=== PATIENT | female | born 1985 | race Caucasian/White ===

== ENCOUNTER 2016-12-19 02:43 | Inpatient (IN) | payer OTHER ==
--- NOTE | 2016-12-19 03:02 | ED Physician Documentation ---
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
--- NOTE | 2016-12-19 03:03 | ED Physician Documentation ---
PD HPI ABD PAIN - Stated complaint Stated Complaint: VOMITING/SOA - Chief complaint Chief Complaint: Abd Pain - History obtained from History obtained from: Patient - History of Present Illness Timing - onset: Enter time (00:30 AM), Today Timing - duration: Hours Timing - details: Abrupt onset, Waxing and waning Pain level max: 10 Pain level now: 8 Quality: Pain Location: RUQ, Epigastric Radiation: Other (across upper abdomen and towards right flank) Improved by: Other (no ameliorating factors) Worsened by: Position, Palpation Associated symptoms: Nausea, Vomiting. No: Fever, Diarrhea, Constipation Similar symptoms before: Has not had sx before Recently seen: Not recently seen Review of Systems Constitutional: reports: Reviewed and negative Eyes: reports: Reviewed and negative Ears: reports: Reviewed and negative Nose: reports: Reviewed and negative Throat: reports: Reviewed and negative Cardiac: reports: Reviewed and negative Respiratory: reports: Reviewed and negative GI: reports: Abdominal Pain, Nausea, Vomiting. 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 Other Past Medical History: PCOS - Past Surgical History Past Surgical History: Yes Ortho: Other - Present Medications Home Medications: Ambulatory Orders Medication Instructions Recorded Confirmed Metformin HCl 1,000 mg PO BID 12/19/16 12/19/16 - Allergies Allergies/Adverse Reactions: Allergies Allergy/AdvReac Type Severity Reaction Status Date / Time codeine Allergy Hallucinati Verified 12/19/16 02:51 ons - Social History Does the pt smoke?: No Smoking Status: Never smoker Does the pt drink ETOH?: No - Immunizations Immunizations are current?: Yes PD ED PE NORMAL - Vitals Vital signs reviewed: Yes - General General: Alert and oriented X 3, Well developed/nourished, Other (obvious painful distress that appears to wax and wane in intensity during HPI) - Neck Neck: Supple, no meningeal sign - Cardiac Cardiac: RRR, No murmur - Respiratory Respiratory: No respiratory distress, Clear bilaterally - Abdomen Abdomen: Soft, Non distended - Back Back: No CVA TTP - Derm Derm: Normal color, Warm and dry - Extremities Extremities: No edema - Neuro Neuro: Alert and oriented X 3 PD ED PE EXPANDED - Abdomen Abdomen: Tender to palpation, RUQ, Epigastric. No: Rebound Results - Vitals Vitals: Vital Signs - 24 hr 12/19/16 02:48 Temperature 36.7 C Heart Rate 76 Respiratory 20 Rate Blood Pressure 136/76 H O2 Saturation 100 Oxygen O2 Source Room air - Labs Labs: Laboratory Tests 12/19/16 12/19/16 12/19/16 03:33 03:33 03:33 WBC 15.0 H RBC 4.61 Hgb 12.8 Hct 38.0 MCV 82.4 MCH 27.7 MCHC 33.6 RDW 14.1 Plt Count 256 MPV 8.3 Neut # 12.4 H Lymph # 1.6 [place] # 0.9 Eos # 0.0 Baso # 0.1 Absolute Nucleated RBC 0.00 Nucleated RBCs 0.0 Sodium 138 Potassium 3.7 Chloride 104 Carbon Dioxide 24 Anion Gap 10.0 BUN 12 Creatinine 0.6 Estimated GFR (MDRD) 117 Glucose 133 H Calcium 8.3 L Total Bilirubin 1.0 AST 411 H ALT 283 H Alkaline Phosphatase 89 Total Protein 6.5 L Albumin 3.7 Globulin 2.8 Albumin/Globulin Ratio 1.3 Lipase 3390 H HCG, Quant < 0.60 Urine Color Urine Clarity Urine pH Ur Specific [place] Urine Protein Urine Glucose (UA) Urine Ketones Urine Occult Blood Urine Nitrite Urine Bilirubin Urine Urobilinogen Ur Leukocyte Esterase Ur Microscopic Review Urine Culture Comments 12/19/16 06:05 WBC RBC Hgb Hct MCV MCH MCHC RDW Plt Count MPV Neut # Lymph # [place] # Eos # Baso # Absolute Nucleated RBC Nucleated RBCs Sodium Potassium Chloride Carbon Dioxide Anion Gap BUN Creatinine Estimated GFR (MDRD) Glucose Calcium Total Bilirubin AST ALT Alkaline Phosphatase Total Protein Albumin Globulin Albumin/Globulin Ratio Lipase HCG, Quant Urine Color YELLOW Urine Clarity CLEAR Urine pH 6.5 Ur Specific [place] 1.020 Urine Protein NEGATIVE Urine Glucose (UA) NEGATIVE Urine Ketones NEGATIVE Urine Occult Blood NEGATIVE Urine Nitrite NEGATIVE Urine Bilirubin NEGATIVE Urine Urobilinogen 1 (NORMAL) Ur Leukocyte Esterase NEGATIVE Ur Microscopic Review NOT INDICATED Urine Culture Comments NOT INDICATED - Rads (name of study) RUQ US Radiology: Prelim report reviewed, See rad report PD MEDICAL DECISION MAKING - ED course Complexity details: reviewed results, re-evaluated patient, considered differential, d/w patient, d/w family ED course: D/W Dr. Sigala, who came to ED, evaluated and admitted patient to his service. Departure - Departure Disposition: [facility] DC/[facility] Clinical Impression: Gallstone pancreatitis Condition: Good Discharge Date/Time: 12/19/16 07:34
[2016-12-19] MEDS ORDERED: HYDROmorphone 1 MG/ML SYRINGE ONE (03:11)
[2016-12-19] MEDS ORDERED: ONDANSETRON 4 MG/2 ML VIAL ONE (03:11)
[2016-12-19] MEDS ORDERED: HYDROmorphone 1 MG/ML SYRINGE IVP STA (03:17)
[2016-12-19] MEDS ORDERED: ONDANSETRON 4 MG/2 ML VIAL IVP STA (03:17)
[2016-12-19 03:51] LABS: BASOPHILS # (AUTO) 0.1 10^3/uL (0.0-0.1); BASOPHILS % (AUTO) 0.4 %; EOSINOPHILS % (AUTO) 0.3 %; HGB - HEMOGLOBIN 12.8 g/dL (12.0-16.0); LYMPHOCYTES # (AUTO) 1.6 10^3/uL (1.5-3.5); LYMPHOCYTES % (AUTO) 10.8 %; MEAN CORPUSCULAR HEMOGLOBIN 27.7 pg (27.0-31.0); MEAN CORPUSCULAR HGB CONC 33.6 g/dL (32.0-36.0); MEAN CORPUSCULAR VOLUME 82.4 fL (81.0-99.0); MEAN PLATELET VOLUME 8.3 fL (7.9-10.8); MONOCYTES # (AUTO) 0.9 10^3/uL (0.0-1.0); NEUTROPHILS # (AUTO) 12.4 10^3/uL (1.5-6.6); NEUTROPHILS % (AUTO) 82.5 %; RED BLOOD COUNT 4.61 10^6/uL (4.20-5.40); RED CELL DISTRIBUTION WIDTH 14.1 % (12.0-15.0)
[2016-12-19 04:26] LABS: ALBUMIN/GLOBULIN RATIO 1.3 (1.0-2.2); CALCIUM 8.3 mg/dL (8.5-10.3); CREATININE 0.6 mg/dL (0.4-1.0); POTASSIUM 3.7 mmol/L (3.5-5.0); TOTAL PROTEIN 6.5 g/dL (6.7-8.2)
--- NOTE | 2016-12-19 05:03 | Ultrasound Preliminary Report ---
Exam: US Abdomen Limited IMPRESSION: 1. Cholelithiasis without definite acute cholecystitis. 2. Fatty liver. [facility] SITE ID: [id number]
--- NOTE | 2016-12-19 05:05 | Ultrasound Report ---
EXAM: ABDOMEN ULTRASOUND LIMITED, RUQ EXAM DATE: 12/19/2016 04:48 AM. CLINICAL HISTORY: Abd. pain. COMPARISON: None. TECHNIQUE: Real-time scanning was performed with static images obtained. FINDINGS: Liver: Echotexture increased without suspicious abnormality seen. Main portal vein flow: Hepatopetal. Gallbladder: Partially contracted. Gallbladder filled with gallstones without gross wall thickening o r reported tenderness. Biliary System: CBD measures 4 mm. No intrahepatic or extrahepatic ductal dilatation. Other: None. IMPRESSION: 1. Cholelithiasis without definite acute cholecystitis. 2. Fatty liver. [facility] Referring Provider Line: [phone] SITE ID: [id number]
[2016-12-19 06:26] LABS: BILIRUBIN,URINE NEGATIVE (NEGATIVE); PH,URINE 6.5 PH (5.0-7.5)
[2016-12-19 06:27] LABS: UA CHARGE (STRIP ONLY) YES; UR CULTURE IF IND NOT INDICATED
[2016-12-19] MEDS: HYDROmorphone 1 MG/ML SYRINGE IVP PRN ×9 (06:59→23:59)
[2016-12-19] MEDS: ONDANSETRON 4 MG/2 ML VIAL IVP PRN (06:59)
[2016-12-19] MEDS: SODIUM CHLORIDE 0.9% 1,000 ML IV SCH ×3 (07:53→23:02)
--- NOTE | 2016-12-19 08:00 | HISTORY & PHYSICAL EXAMINATION ---
DATE OF ADMISSION: 12/19/2016 REASON FOR ADMISSION: Abdominal pain. HISTORY OF PRESENT ILLNESS: The patient is a 31-year-old female who presents with acute onset of abdo genna pain starting several hours prior to coming into the hospital. This was quite severe. It is in the right and left upper quadrant, radiating to her back. She has had occasional pain in the right up per quadrant for the last couple of months, but this is fleeting and would go away on its own. Today' s pain did not improve and actually worsened, and therefore she came to the emergency room. She had n ausea and vomiting, but no diarrhea or constipation. No complaints of fever. She denies any history o f peptic ulcer disease, jaundice, acholic stools. PAST MEDICAL HISTORY: Polycystic ovarian. MEDICATIONS: Metformin. ALLERGIES: CODEINE. HABITS: The patient denies any smoking, alcohol or drug use. SOCIAL HISTORY: The patient is . REVIEW OF SYSTEMS NEUROLOGIC: Denies any weakness. PULMONARY: Denies shortness of breath. CARDIOVASCULAR: Denies any chest pain. ABDOMEN: Abdominal pain, nausea and vomiting. EXTREMITIES: Denies any weakness. PSYCHOLOGICAL: Denies any depression. PAST SURGICAL HISTORY: Orthopedic surgery. PHYSICAL EXAMINATION VITAL SIGNS: Temperature 36.7, heart rate 76, respirations 20, blood pressure 136/76. GENERAL: Patient is lying in bed. She is in mild distress secondary to abdominal pain, but is coopera tive. EYES: Nonicteric. NECK: No lymphadenopathy. HEART: Regular. LUNGS: Clear. BACK: Nontender. ABDOMEN: Soft and tender in the right and left upper quadrants and epigastric region. No obvious marisa ias. EXTREMITIES: No edema or cyanosis. NEUROLOGIC: The patient appears to be neurologically intact without any deficits. PSYCHOLOGICAL: Patient is coherent, cooperative, and appears to answer questions fully. DIAGNOSTIC DATA: AST 411, ALT 283, lipase 390. test is negative. Ultrasound of the abdomen shows a common bile duct of 4 mm. Gallbladder is filled with stones without thickening of the wall. T here is fatty liver present. ASSESSMENT 1. Upper abdominal pain along with elevated liver function tests and lipase. This most likely is gall stone pancreatitis. I have explained to the patient most of these will resolve with time along with n othing by mouth and intravenous fluids. It is recommended that she have her cholecystectomy within 6 weeks as up to 50% will present with recurrent pancreatitis by then. She acknowledges this. 2. Polycystic ovarian disease, on metformin. Because the patient is nothing by mouth, we will hold th e metformin. 3. Fatty liver. PLAN 1. The patient will be admitted to the hospital. 2. N.p.o. 3. IV fluids. 4. Followup abdominal exams and pancreatic and liver tests. JOB #: [id number] EXT JOB #:[id number]
[2016-12-19] MEDS ORDERED: FAMOTIDINE 20 MG in SODIUM CHLORIDE 0.9% 50 ML IV SCH (09:00)
[2016-12-19] MEDS: FAMOTIDINE 20 MG/50 ML 50 ML IV SCH ×2 (10:18→22:05)
[2016-12-19] MEDS ORDERED: SODIUM CHLORIDE FLUSH 0.9% 10 ML SYRINGE IVP ONE ×4 (16:08→23:58)
[2016-12-20] MEDS: HYDROmorphone 1 MG/ML SYRINGE IVP PRN ×9 (02:03→22:52)
[2016-12-20] MEDS: SODIUM CHLORIDE 0.9% 1,000 ML IV SCH ×3 (02:05→21:23)
[2016-12-20] MEDS ORDERED: SODIUM CHLORIDE FLUSH 0.9% 10 ML SYRINGE IVP ONE ×2 (04:26→14:54)
[2016-12-20] MEDS: ONDANSETRON 4 MG/2 ML VIAL IVP PRN ×3 (06:14→16:16)
[2016-12-20 06:21] LABS: BASOPHILS % (AUTO) 0.3 %; EOSINOPHILS % (AUTO) 0.1 %; HCT - HEMATOCRIT 37.7 % (37.0-47.0); HGB - HEMOGLOBIN 12.5 g/dL (12.0-16.0); LYMPHOCYTES % (AUTO) 6.7 %; MEAN CORPUSCULAR HEMOGLOBIN 27.8 pg (27.0-31.0); MEAN CORPUSCULAR VOLUME 84.2 fL (81.0-99.0); MEAN PLATELET VOLUME 8.4 fL (7.9-10.8); MONOCYTES % (AUTO) 5.3 %; NEUTROPHILS % (AUTO) 87.6 %; RED BLOOD COUNT 4.48 10^6/uL (4.20-5.40); RED CELL DISTRIBUTION WIDTH 14.6 % (12.0-15.0); UNCORRECTED WHITE BLOOD COUNT 20.3 x10^3/uL; WHITE BLOOD COUNT 20.3 x10^3/uL (4.8-10.8)
[2016-12-20 06:43] LABS: ALBUMIN/GLOBULIN RATIO 1.3 (1.0-2.2); BILIRUBIN,TOTAL 0.7 mg/dL (0.2-1.0); CALCIUM 7.7 mg/dL (8.5-10.3); CREATININE 0.7 mg/dL (0.4-1.0); POTASSIUM 3.8 mmol/L (3.5-5.0); TOTAL PROTEIN 6.2 g/dL (6.7-8.2)
[2016-12-20 07:08] LABS: BAND NEUTROPHILS % (MANUAL) 15 %; LYMPHOCYTES % (MANUAL) 18 %; NEUTROPHILS % (MANUAL) 65 %; NP AUTO DIFFERENTIAL? YES; NP MAN DIFFERENTIAL? NO; PLATELET ESTIMATE, MANUAL NORMAL (130-450,000) (NORMAL); TOTAL CELLS COUNTED 100
--- NOTE | 2016-12-20 08:30 | PROVIDER PROGRESS NOTE ---
Subjective - General Admit Date: 12/19/16 - Review of Systems Gastrointestinal: positive: Abdominal pain (improving but still present) Objective - Patient Data Vital Signs: Vital Signs x48h Temp Pulse Resp BP Pulse Ox 12/20/16 08:15 37.1 C 12/20/16 07:37 36.9 C 104 H 19 138/68 H 93 Intake & Output: Intake and Output Totals x24h 12/18/16 12/19/16 12/20/16 23:59 23:59 23:59 Intake Total 1515 903 Balance 1515 903 - Lab Results Lab Results: 12/20/16 05:45 12/20/16 05:45 Other Lab Results: Lab Results x24hrs 12/20/16 12/20/16 Range/Units 05:45 05:45 WBC 20.3 H (4.8-10.8) x10^3/uL RBC 4.48 (4.20-5.40) 10^6/uL Hgb 12.5 (12.0-16.0) g/dL Hct 37.7 (37.0-47.0) % MCV 84.2 (81.0-99.0) fL MCH 27.8 (27.0-31.0) pg MCHC 33.0 (32.0-36.0) g/dL RDW 14.6 (12.0-15.0) % Plt Count 241 (130-450) 10^3/uL MPV 8.4 (7.9-10.8) fL Neut # Not Reportable Lymph # Not Reportable [place] # Not Reportable Eos # Not Reportable Baso # Not Reportable Absolute Nucleated RBC Not Reportable Total Counted 100 Band Neuts % (Manual) 15 H (0 - 10) % Neutrophils # (Manual) 16.2 H (1.5-6.6) 10^3/uL Lymphocytes # (Manual) 3.7 H (1.5-3.5) 10^3/uL Monocytes # (Manual) 0.4 (0.0-1.0) 10^3/uL Nucleated RBCs Not Reportable Differential Comment MANUAL DIFFERENTIAL Platelet Estimate NORMAL (130-450,000) (NORMAL) RBC Morph Micro Appear NORMAL APPEARANCE (NORMAL) Sodium 139 (135-145) mmol/L Potassium 3.8 (3.5-5.0) mmol/L Chloride 106 (101-111) mmol/L Carbon Dioxide 26 (21-32) mmol/L Anion Gap 7.0 (6-13) BUN 8 (6-20) mg/dL Creatinine 0.7 (0.4-1.0) mg/dL Estimated GFR (MDRD) 98 (>89) Glucose 100 (70-100) mg/dL Calcium 7.7 L (8.5-10.3) mg/dL Total Bilirubin 0.7 (0.2-1.0) mg/dL AST 83 H (10-42) IU/L ALT 200 H (10-60) IU/L Alkaline Phosphatase 94 (42-121) IU/L Total Protein 6.2 L (6.7-8.2) g/dL Albumin 3.5 (3.2-5.5) g/dL Globulin 2.7 (2.1-4.2) g/dL Albumin/Globulin Ratio 1.3 (1.0-2.2) Amylase 179 H (28-100) U/L Lipase 166 H (22-51) U/L - Current Medications Current Medications: Current Medications Generic Name Dose Route Start Last Admin Trade Name Freq PRN Reason Stop Dose Admin Hydromorphone HCl 1 mg 12/19/16 06:42 12/19/16 06:59 Dilaudid Inj IVP 1 mg Q2HR PRN Administration Mild Pain Hydromorphone HCl 2 mg 12/19/16 06:42 12/20/16 06:13 Dilaudid Inj IVP 2 mg Q2HR PRN Administration Severe Pain Sodium Chloride 1,000 mls @ 125 mls/hr 12/19/16 07:00 12/20/16 02:05 Normal Saline 0.9% IV 125 mls/hr .Q8H JACK Administration Famotidine 50 mls @ 100 mls/hr 12/19/16 10:02 12/19/16 22:05 Pepcid 20 Mg/50 Ml IV 100 mls/hr BID JACK Administration Ondansetron HCl 4 mg 12/19/16 06:43 12/20/16 06:14 Zofran Inj IVP 4 mg Q6HR PRN Administration Nausea / Vomiting - Physical Exam Abdomen: positive: Other (mild to moderate tenderness in epigastric area) Impression/Plan - Problem List Problem List: gallstone pancreatitis. Lipase/amylase as well as lfts improving. Abdominal pain still present though but a little less. Continue just water. WBC up as well as she having low grade temp. Will start antibiotics. Laparoscopic cholecystectomy in 1-3 days.
[2016-12-20] MEDS: FAMOTIDINE 20 MG/50 ML 50 ML IV SCH ×2 (08:41→20:52)
[2016-12-20] MEDS ORDERED: SODIUM CHLORIDE 0.9% MINIBAG 100 ML IV ONE (09:56)
[2016-12-20] MEDS: PIPERACILLIN/TAZOBACTAM 3.375 GM in SODIUM CHLORIDE 0.9% MINIBAG 100 ML IV SCH ×3 (09:58→21:29)
--- NOTE | 2016-12-21 01:14 | CONSULTATION NOTE ---
Referring Provider Name of Referring Provider:: Daniel Sigala Consult Date: 12/21/16 (cough, hypoxia) Chief Complaint - Chief Complaint Chief Complaint: gallstone pancreatitis History of Present Illness - History Obtained From Records Reviewed: yes History obtained from: chart and patient - History of Present Illness HPI Comment/Other: 31yoF with no significant PMH[place] Change in diet with increased fast food and sodas. Pt came in with n/v, no fevers. Found to have gallstone pancreatitis. only eating minimal ice chips. On HD#2 pt with increased WBC (15->20) and bandemia (15%), so started on Pip/tazo with planned lap gene in 1-2 days. Called tonight for cough and hypoxia with O2 sats at 87%. Pt reports cough due to post nasal drip x2 days. Feels it is due to laying in bed and blunted respiration due to pain medication. Cough is productive of clear sputum. Improves while up walking. Pt states fever to 102 last night, though not seen in chart records. States she has been feeling hot for 2 days. no congestion, itchy eyes +post nasal drip, no dysphagia, odynophagia, no n/v/d/c, no dysuria/ hematuria, no rash/itching. Review of Systems - Constitutional Constitutional: reports: Fever - Eyes Eyes: denies: Pain, Irritation, Blurred vision - Ears, Nose & Throat Ears, Nose & Throat: reports: Nasal congestion, Postnasal drainage, Sore throat. denies: Ear pain, Tinnitus, Vertigo, Dental pain - Cardiovascular Cariovascular: denies: Irregular heart rate, Palpitations, Chest pain - Respiratory Respiratory: reports: Cough, Sputum production (clear). denies: Hemoptysis - Gastrointestinal Gastrointestinal: reports: Abdominal pain. denies: Constipation, Diarrhea, Black stools, Bloody stools, Nausea (resolved), Vomiting (resolved) - Genitourinary Genitourinary: denies: Dysuria, Hematuria - Musculoskeletal Musculoskeletal: denies: Muscle weakness, Joint pain - Integumentary Integumentary: denies: Rash, Pruritis - All Other Systems All Other Systems: reports: Reviewed and negative History - Past Medical History MRSA Hx?: No Other Past Medical History: PCOS. obesity - Past Surgical History Ortho: reports: Other - Family & Social History Living arrangement: At home Living Situation: With spouse/s.o. - Substance History Use: Uses substance without health or social issues: Alcohol (rare) Meds/Allgy - Home Medications Home Medications: Ambulatory Orders Medication Instructions Recorded Confirmed Metformin HCl 1,000 mg PO BID 12/19/16 12/19/16 - Allergies Allergies/Adverse Reactions: Allergies Allergy/AdvReac Type Severity Reaction Status Date / Time codeine Allergy Hallucinati Verified 12/19/16 02:51 ons Exam - Vital Signs Reviewed Vital Signs: Yes Vital Signs: Vital Signs x48h Temp Pulse Resp BP 12/21/16 00:25 37.0 C 100 22 135/79 H 12/20/16 18:20 37.2 C - Physical Exam General Appearance: positive: No acute distress, Alert Eyes Bilateral: positive: PERRL, EOMI, Conjunctivae nml, No scleral icterus ENT: positive: Pharynx nml. negative: Oral lesions Neck: positive: Nml inspection. negative: Thyromegaly, Lymphadenopathy (R), Lymphadenopathy (L) Respiratory: positive: Chest non-tender, Rhonchi, Other (cough with inspiration) . negative: Wheezes Cardiovascular: positive: Regular rate & rhythm, No murmur, No gallop Peripheral Pulses: positive: 2+ Abdomen: positive: Abnml bowel sounds (absent/rare). negative: Guarding, Rebound Back: positive: Nml inspection. negative: CVA tenderness (R), CVA tenderness (L ) Skin: positive: Color nml, No rash, Warm, Dry Neurologic/Psychiatric: positive: Oriented x3, Mood/affect nml Conclusion/Plan - Diagnosis Diagnosis: cough, post nasal drip - Plan Plan: 1. Cough with mild hypoxia, likely due to post nasal drip and mild respiratory blunting - will check CXR to eval for developing PNA (already on abx) - supplemental O2 by NC - encourage inspirometer use, ambulation - tessalon pearls prn - will try non-sedating antihistamine first, but if not effective, may try diphenhydramine - non-sedating pain medications as tolerated 2. gallstone pancreatitis - planned lap gene soon - cont NPO, pain control, plan per surgery - Lab Results Fish Bones: 12/20/16 05:45 12/20/16 05:45 - Diagnostic Imaging Results Diagnostic Imaging Results: positive: Final report reviewed
[2016-12-21] MEDS: HYDROmorphone 1 MG/ML SYRINGE IVP PRN ×9 (02:30→22:33)
[2016-12-21] MEDS: CETIRIZINE 10 MG TABLET PO SCH ×2 (02:31→09:10)
[2016-12-21] MEDS: PIPERACILLIN/TAZOBACTAM 3.375 GM in SODIUM CHLORIDE 0.9% MINIBAG 100 ML IV SCH ×4 (02:31→21:38)
[2016-12-21] MEDS: BENZONATATE 100 MG CAPSULE PO PRN (02:31)
[2016-12-21 05:34] LABS: HGB - HEMOGLOBIN 11.6 g/dL (12.0-16.0)
[2016-12-21 05:50] LABS: CREATININE 0.7 mg/dL (0.4-1.0)
[2016-12-21 07:29] LABS: BASOPHILS # (AUTO) 0.1 10^3/uL (0.0-0.1); BASOPHILS % (AUTO) 0.7 %; EOSINOPHILS % (AUTO) 0.1 %; HCT - HEMATOCRIT 34.5 % (37.0-47.0); LYMPHOCYTES # (AUTO) 1.7 10^3/uL (1.5-3.5); LYMPHOCYTES % (AUTO) 8.3 %; MEAN CORPUSCULAR HEMOGLOBIN 28.1 pg (27.0-31.0); MEAN CORPUSCULAR HGB CONC 33.5 g/dL (32.0-36.0); MEAN CORPUSCULAR VOLUME 83.8 fL (81.0-99.0); MEAN PLATELET VOLUME 8.1 fL (7.9-10.8); MONOCYTES % (AUTO) 4.9 %; RED BLOOD COUNT 4.12 10^6/uL (4.20-5.40); RED CELL DISTRIBUTION WIDTH 14.3 % (12.0-15.0)
--- NOTE | 2016-12-21 07:46 | XRAY Preliminary Report ---
Exam: XR Chest 2 View PA/LAT IMPRESSION: 1. Multilobar pneumonia. [facility] SITE ID: [id number]
--- NOTE | 2016-12-21 07:49 | XRAY Report ---
EXAM: CHEST RADIOGRAPHY EXAM DATE: 12/21/2016 07:32 AM. CLINICAL HISTORY: New hypoxia and cough, evaluate for pneumonia. COMPARISON: None. TECHNIQUE: 2 views. FINDINGS: Lungs/Pleura: Multilobar airspace consolidation is most prominent seen both upper lobes and the left lower lung. No pleural effusions. No pneumothorax. Mediastinum: Heart and mediastinal contours are unremarkable. Other: None. IMPRESSION: 1. Multilobar pneumonia. [facility] Referring Provider Line: [phone] SITE ID: [id number]
[2016-12-21 07:57] LABS: NP AUTO DIFFERENTIAL? NO; NP MAN DIFFERENTIAL? YES; PLATELET MORPHOLOGY RARE GIANT PLATELETS (NORMAL); WBC MORPHOLOGY (MULTIPLE) 1+ VACUOLATION (NORMAL)
[2016-12-21 08:08] LABS: POTASSIUM 3.8 mmol/L (3.5-5.0)
[2016-12-21 08:09] LABS: CALCIUM 7.3 mg/dL (8.5-10.3)
[2016-12-21 08:10] LABS: TOTAL PROTEIN 6.7 g/dL (6.7-8.2)
[2016-12-21 08:11] LABS: ALBUMIN/GLOBULIN RATIO 1.1 (1.0-2.2)
[2016-12-21] MEDS ORDERED: VANCOMYCIN PER PHARMACY 1.5 GM in SODIUM CHLORIDE 0.9% 250 ML IV SCH (09:00)
[2016-12-21] MEDS: FAMOTIDINE 20 MG/50 ML 50 ML IV SCH ×2 (09:11→20:39)
[2016-12-21] MEDS ORDERED: SODIUM CHLORIDE FLUSH 0.9% 10 ML SYRINGE IVP ONE ×2 (10:06→20:42)
[2016-12-21] MEDS: VANCOMYCIN INJ 1 GM in SODIUM CHLORIDE 0.9% 250 ML IV SCH ×2 (10:19→18:08)
--- NOTE | 2016-12-21 15:04 | PROVIDER PROGRESS NOTE ---
Subjective - General Admit Date: 12/19/16 - Review of Systems Gastrointestinal: positive: Abdominal pain (improving but still present) All Other Systems: positive: Reviewed and negative Objective - Patient Data Vital Signs: Vital Signs x48h Temp Pulse Resp BP Pulse Ox 12/21/16 13:58 36.2 C L 86 22 100/86 H 88 L 12/21/16 07:53 36.8 C 83 20 133/61 H 94 Intake & Output: Intake and Output Totals x24h 12/19/16 12/20/16 12/21/16 23:59 23:59 23:59 Intake Total 1515 2424 1610 Balance 1515 2424 1610 - Lab Results Lab Results: 12/21/16 05:01 12/21/16 05:01 Other Lab Results: Lab Results x24hrs 12/21/16 12/21/16 Range/Units 05:01 05:01 WBC 21.0 H (4.8-10.8) x10^3/uL RBC 4.12 L (4.20-5.40) 10^6/uL Hgb 11.6 L (12.0-16.0) g/dL Hct 34.5 L (37.0-47.0) % MCV 83.8 (81.0-99.0) fL MCH 28.1 (27.0-31.0) pg MCHC 33.5 (32.0-36.0) g/dL RDW 14.3 (12.0-15.0) % Plt Count 219 (130-450) 10^3/uL MPV 8.1 (7.9-10.8) fL Neut # 18.0 H (1.5-6.6) 10^3/uL Lymph # 1.7 (1.5-3.5) 10^3/uL [place] # 1.0 (0.0-1.0) 10^3/uL Eos # 0.0 (0.0-0.7) 10^3/uL Baso # 0.1 (0.0-0.1) 10^3/uL Absolute Nucleated RBC 0.01 x10^3/uL Band Neuts % (Manual) Not Reportable Nucleated RBCs 0.0 /100WBC Differential Comment MANUAL=AUTO DIFF WBC Morphology 1+ VACUOLATION (NORMAL) Platelet Morphology RARE GIANT PLATELETS (NORMAL) Sodium 137 (135-145) mmol/L Potassium 3.8 (3.5-5.0) mmol/L Chloride 104 (101-111) mmol/L Carbon Dioxide 25 (21-32) mmol/L Anion Gap 8.0 (6-13) BUN 9 (6-20) mg/dL Creatinine 0.7 (0.4-1.0) mg/dL Estimated GFR (MDRD) 98 (>89) Glucose 114 H (70-100) mg/dL Calcium 7.3 L (8.5-10.3) mg/dL Total Bilirubin 1.0 (0.2-1.0) mg/dL AST 46 H (10-42) IU/L ALT 135 H (10-60) IU/L Alkaline Phosphatase 94 (42-121) IU/L Total Protein 6.7 (6.7-8.2) g/dL Albumin 3.5 (3.2-5.5) g/dL Globulin 3.2 (2.1-4.2) g/dL Albumin/Globulin Ratio 1.1 (1.0-2.2) Amylase 54 (28-100) U/L Lipase 38 (22-51) U/L - Current Medications Current Medications: Current Medications Generic Name Dose Route Start Last Admin Trade Name Freq PRN Reason Stop Dose Admin Benzonatate 100 mg 12/21/16 01:43 12/21/16 02:31 Tessalon PO 100 mg TID PRN Administration Cough Cetirizine HCl 10 mg 12/21/16 02:00 12/21/16 09:10 Zyrtec PO 10 mg DAILY JACK Administration Hydromorphone HCl 1 mg 12/19/16 06:42 12/19/16 06:59 Dilaudid Inj IVP 1 mg Q2HR PRN Administration Mild Pain Hydromorphone HCl 2 mg 12/19/16 06:42 12/21/16 13:47 Dilaudid Inj IVP 2 mg Q2HR PRN Administration Severe Pain Sodium Chloride 1,000 mls @ 125 mls/hr 12/19/16 07:00 12/20/16 21:23 Normal Saline 0.9% IV Not Given .Q8H JACK Famotidine 50 mls @ 100 mls/hr 12/19/16 10:02 12/21/16 09:11 Pepcid 20 Mg/50 Ml IV 100 mls/hr BID JACK Administration Piperacillin Sod/Tazobactam 100 mls @ 200 mls/hr 12/20/16 09:00 12/21/16 14:48 Sod 3.375 gm/ Sodium Chloride IV 200 mls/hr Q6H JACK Administration Vancomycin HCl 1 gm/ Sodium 250 mls @ 167 mls/hr 12/21/16 10:00 12/21/16 10:19 Chloride IV 167 mls/hr Q8H JACK Administration Ondansetron HCl 4 mg 12/19/16 06:43 12/20/16 16:16 Zofran Inj IVP 4 mg Q6HR PRN Administration Nausea / Vomiting - Physical Exam Rectal: positive: Other (mild epigastric tenderness) Impression/Plan - Problem List Problem List: 1) gallstone pancreatitis improved. Will need to delay cholecystectomy due to pneumonia. Advance diet. 2) pneumonia continue iv abxs per hosptialist.
[2016-12-21] MEDS: SODIUM CHLORIDE 0.9% 1,000 ML IV SCH ×2 (17:03→17:07)
--- NOTE | 2016-12-21 17:24 | PROVIDER PROGRESS NOTE ---
Subjective - Subjective Pt reports feeling: Improved Subjective: pt state she feel better, denies chest pain, headache, SOB. no fever, chill Objective - Vital Signs/Intake & Output Vital Signs: Vital Signs x48h Temp Pulse Resp BP Pulse Ox 12/21/16 15:30 16 95 12/21/16 13:58 36.2 C L 86 22 100/86 H 88 L Intake & Output: Intake & Output 12/18/16 12/19/16 12/20/16 12/21/16 23:59 23:59 23:59 23:59 Intake Total 1515 2424 1610 Balance 1515 2424 1610 - Objective General Appearance: positive: No acute distress, Alert. negative: Anxious Eyes Bilateral: positive: EOMI. negative: Normal inspection, PERRL ENT: positive: ENT inspection nml, Pharynx nml, No signs of dehydration. negative: Purulent nasal drainage, Pharyngeal erythema, Oral lesions Neck: positive: Nml inspection, Thyroid nml, Trachea midline. negative: Lymphadenopathy (R), Lymphadenopathy (L), Stiff neck, Carotid bruit, Swelling/ bruising, Tracheal deviation Respiratory: positive: Chest non-tender, No respiratory distress, Rhonchi. negative: Wheezes, Rales Cardiovascular: positive: Regular rate & rhythm, No murmur, No gallop. negative : Extrasystoles, Tachycardia, Bradycardia, Systolic murmur, Diastolic murmur Peripheral Pulses: 2+ Radial (R), 2+ Radial (L), 2+ Dorsalis pedis (R), 2+ Dorsalis pedis (L) Abdomen: positive: Non-tender, Nml bowel sounds, No distention. negative: Tenderness, Guarding, Rebound, Bruit Back: positive: Nml inspection. negative: CVA tenderness (R), CVA tenderness (L ) Skin: positive: Color nml, No rash, Warm, Dry. negative: Skin rash, Decubitus Extremities: positive: Non-tender, Full ROM, Nml appearance. negative: Pedal edema, Calf tenderness, Joint swelling Neurologic/Psychiatric: positive: Oriented x3, Motor nml, Sensation nml, Mood/ affect nml, Weakness. negative: Disoriented to person, Disoriented to place, Disoriented to time, Sensory loss, Facial droop, Slurred/abnml speech, Depressed mood/affect - Lab Results Fish Bones: 12/21/16 05:01 12/21/16 05:01 Other Labs: Lab Results x24hrs 12/21/16 12/21/16 Range/Units 05:01 05:01 WBC 21.0 H (4.8-10.8) x10^3/uL RBC 4.12 L (4.20-5.40) 10^6/uL Hgb 11.6 L (12.0-16.0) g/dL Hct 34.5 L (37.0-47.0) % MCV 83.8 (81.0-99.0) fL MCH 28.1 (27.0-31.0) pg MCHC 33.5 (32.0-36.0) g/dL RDW 14.3 (12.0-15.0) % Plt Count 219 (130-450) 10^3/uL MPV 8.1 (7.9-10.8) fL Neut # 18.0 H (1.5-6.6) 10^3/uL Lymph # 1.7 (1.5-3.5) 10^3/uL [place] # 1.0 (0.0-1.0) 10^3/uL Eos # 0.0 (0.0-0.7) 10^3/uL Baso # 0.1 (0.0-0.1) 10^3/uL Absolute Nucleated RBC 0.01 x10^3/uL Band Neuts % (Manual) Not Reportable Nucleated RBCs 0.0 /100WBC Differential Comment MANUAL=AUTO DIFF WBC Morphology 1+ VACUOLATION (NORMAL) Platelet Morphology RARE GIANT PLATELETS (NORMAL) Sodium 137 (135-145) mmol/L Potassium 3.8 (3.5-5.0) mmol/L Chloride 104 (101-111) mmol/L Carbon Dioxide 25 (21-32) mmol/L Anion Gap 8.0 (6-13) BUN 9 (6-20) mg/dL Creatinine 0.7 (0.4-1.0) mg/dL Estimated GFR (MDRD) 98 (>89) Glucose 114 H (70-100) mg/dL Calcium 7.3 L (8.5-10.3) mg/dL Total Bilirubin 1.0 (0.2-1.0) mg/dL AST 46 H (10-42) IU/L ALT 135 H (10-60) IU/L Alkaline Phosphatase 94 (42-121) IU/L Total Protein 6.7 (6.7-8.2) g/dL Albumin 3.5 (3.2-5.5) g/dL Globulin 3.2 (2.1-4.2) g/dL Albumin/Globulin Ratio 1.1 (1.0-2.2) Amylase 54 (28-100) U/L Lipase 38 (22-51) U/L Assessment/Plan - Problem List (1) Gallstone pancreatitis Impression: Lipase is remarkablly improved to normal arrange, pt report her pain is much better, continue on Zosyn, IVF, and advanced diet (2) Pneumonia Impression: CXR reveal pt has multiple foci pneumonia, pt is already on Zosyn but develop pneumonia, add vancomycin, check vancomycin through. sputum culture, blood culture
[2016-12-21] MEDS: POLYETHYLENE GLYCOL 3350 17 GM PACKET PO PRN (17:49)
[2016-12-22] MEDS: SODIUM CHLORIDE 0.9% 1,000 ML IV SCH (00:22)
[2016-12-22] MEDS: HYDROmorphone 1 MG/ML SYRINGE IVP PRN ×10 (00:29→23:52)
[2016-12-22] MEDS ORDERED: SODIUM CHLORIDE FLUSH 0.9% 10 ML SYRINGE IVP ONE ×5 (00:29→23:43)
[2016-12-22] MEDS: VANCOMYCIN INJ 1 GM in SODIUM CHLORIDE 0.9% 250 ML IV SCH ×3 (01:42→23:52)
[2016-12-22] MEDS: PIPERACILLIN/TAZOBACTAM 3.375 GM in SODIUM CHLORIDE 0.9% MINIBAG 100 ML IV SCH ×4 (03:39→21:32)
[2016-12-22] MEDS: BENZONATATE 100 MG CAPSULE PO PRN (04:19)
[2016-12-22 04:24] LABS: BASOPHILS # (AUTO) 0.1 10^3/uL (0.0-0.1); BASOPHILS % (AUTO) 0.5 %; EOSINOPHILS # (AUTO) 0.2 10^3/uL (0.0-0.7); EOSINOPHILS % (AUTO) 1.2 %; HCT - HEMATOCRIT 33.2 % (37.0-47.0); HGB - HEMOGLOBIN 11.1 g/dL (12.0-16.0); LYMPHOCYTES # (AUTO) 1.3 10^3/uL (1.5-3.5); LYMPHOCYTES % (AUTO) 7.2 %; MEAN CORPUSCULAR HEMOGLOBIN 27.8 pg (27.0-31.0); MEAN CORPUSCULAR HGB CONC 33.3 g/dL (32.0-36.0); MEAN CORPUSCULAR VOLUME 83.6 fL (81.0-99.0); MEAN PLATELET VOLUME 8.3 fL (7.9-10.8); MONOCYTES # (AUTO) 1.4 10^3/uL (0.0-1.0); MONOCYTES % (AUTO) 7.8 %; NEUTROPHILS # (AUTO) 14.9 10^3/uL (1.5-6.6); NEUTROPHILS % (AUTO) 83.3 %; RED BLOOD COUNT 3.97 10^6/uL (4.20-5.40); RED CELL DISTRIBUTION WIDTH 14.3 % (12.0-15.0); UNCORRECTED WHITE BLOOD COUNT 17.9 x10^3/uL; WHITE BLOOD COUNT 17.9 x10^3/uL (4.8-10.8)
[2016-12-22 04:48] LABS: BILIRUBIN,TOTAL 0.9 mg/dL (0.2-1.0); CREATININE 0.6 mg/dL (0.4-1.0); MAGNESIUM 1.9 mg/dL (1.7-2.8); POTASSIUM 3.5 mmol/L (3.5-5.0); TOTAL PROTEIN 5.9 g/dL (6.7-8.2)
[2016-12-22] MEDS ORDERED: BENZOCAINE/MENTHOL LOZENGE MM PRN (05:00)
[2016-12-22] MEDS ORDERED: SENNA 8.6 MG TABLET PO SCH (09:00)
[2016-12-22] MEDS ORDERED: DOCUSATE SODIUM 250 MG CAPSULE PO SCH (09:00)
[2016-12-22] MEDS ORDERED: CALCIUM GLUCONATE 1,000 MG in SODIUM CHLORIDE 0.9% 50 ML IV ONE (09:06)
[2016-12-22] MEDS: CETIRIZINE 10 MG TABLET PO SCH (10:05)
[2016-12-22] MEDS: SACCHAROMYCES BOULARDII 250 MG CAPSULE PO SCH ×2 (10:05→17:26)
[2016-12-22] MEDS: FAMOTIDINE 20 MG/50 ML 50 ML IV SCH ×2 (11:06→21:32)
--- NOTE | 2016-12-22 11:22 | PROVIDER PROGRESS NOTE ---
Subjective - Subjective Pt reports feeling: Improved Subjective: Abdominal pain improved. LFT's and lipase normalizing. She is tolerating clear liquids. Objective - Vital Signs/Intake & Output Reviewed Vital Signs: Yes Vital Signs: Vital Signs x48h Temp Pulse Resp BP Pulse Ox 12/22/16 08:00 96 12/22/16 07:58 36.8 C 74 18 122/71 90 L Intake & Output: Intake & Output 12/19/16 12/20/16 12/21/16 12/22/16 23:59 23:59 23:59 23:59 Intake Total 1515 2424 2768 1612 Balance 1515 2424 2768 1612 - Objective Respiratory: positive: Rales, Rhonchi, Other Cardiovascular: positive: Regular rate & rhythm Abdomen: positive: Other (soft and non-tender to palpation) Extremities: positive: No pedal edema - Lab Results Fish Bones: 12/22/16 03:56 12/22/16 03:56 Other Labs: Lab Results x24hrs 12/22/16 12/22/16 Range/Units 03:56 03:56 WBC 17.9 H (4.8-10.8) x10^3/uL RBC 3.97 L (4.20-5.40) 10^6/uL Hgb 11.1 L (12.0-16.0) g/dL Hct 33.2 L (37.0-47.0) % MCV 83.6 (81.0-99.0) fL MCH 27.8 (27.0-31.0) pg MCHC 33.3 (32.0-36.0) g/dL RDW 14.3 (12.0-15.0) % Plt Count 227 (130-450) 10^3/uL MPV 8.3 (7.9-10.8) fL Neut # 14.9 H (1.5-6.6) 10^3/uL Lymph # 1.3 L (1.5-3.5) 10^3/uL [place] # 1.4 H (0.0-1.0) 10^3/uL Eos # 0.2 (0.0-0.7) 10^3/uL Baso # 0.1 (0.0-0.1) 10^3/uL Absolute Nucleated RBC 0.01 x10^3/uL Nucleated RBCs 0.0 /100WBC Sodium 138 (135-145) mmol/L Potassium 3.5 (3.5-5.0) mmol/L Chloride 103 (101-111) mmol/L Carbon Dioxide 28 (21-32) mmol/L Anion Gap 7.0 (6-13) BUN 6 (6-20) mg/dL Creatinine 0.6 (0.4-1.0) mg/dL Estimated GFR (MDRD) 117 (>89) Glucose 112 H (70-100) mg/dL Calcium 7.0 L (8.5-10.3) mg/dL Magnesium 1.9 (1.7-2.8) mg/dL Total Bilirubin 0.9 (0.2-1.0) mg/dL AST 45 H (10-42) IU/L ALT 110 H (10-60) IU/L Alkaline Phosphatase 93 (42-121) IU/L Total Protein 5.9 L (6.7-8.2) g/dL Albumin 3.0 L (3.2-5.5) g/dL Globulin 2.9 (2.1-4.2) g/dL Albumin/Globulin Ratio 1.0 (1.0-2.2) Assessment/Plan - Problem List (1) Gallstone pancreatitis Impression: resolving gallstone pancreatitis. Advance to low fat diet. Con't Abx for pneumonia. Upon DC home she will require short interval follow up with Dr. Sigala to schedule cholecystectomy. Risk of pancreatitis recurrence discussed with patient. She agrees to follow up promptly.
[2016-12-22] MEDS: ACETAMINOPHEN 325 MG TABLET PO PRN (12:22)
[2016-12-22] MEDS ORDERED: LIDOCAINE-MPF 1% 5 ML VIAL ONE (14:29)
[2016-12-22] MEDS: DOCUSATE SODIUM 250 MG CAPSULE PO SCH (15:35)
[2016-12-22] MEDS: SENNA 8.6 MG TABLET PO SCH (15:35)
--- NOTE | 2016-12-22 17:17 | PROVIDER PROGRESS NOTE ---
Subjective - Subjective Pt reports feeling: Improved Subjective: pt report she feel better, tolerate food, no other complaints Objective - Vital Signs/Intake & Output Vital Signs: Vital Signs x48h Temp Pulse Resp BP Pulse Ox 12/22/16 16:11 37.0 C 92 18 133/81 H 89 L 12/22/16 14:00 37.2 C 85 18 134/70 H 92 Intake & Output: Intake & Output 12/19/16 12/20/16 12/21/16 12/22/16 23:59 23:59 23:59 23:59 Intake Total 1515 2424 2768 3156 Balance 1515 2424 2768 3157 - Objective General Appearance: positive: No acute distress, Alert. negative: Anxious, Lethargic Eyes Bilateral: positive: Normal inspection, PERRL. negative: No lid inflammation, Conjunctivae nml ENT: positive: ENT inspection nml, Pharynx nml, No signs of dehydration. negative: Purulent nasal drainage, Pharyngeal erythema, Oral lesions Neck: positive: Nml inspection, Thyroid nml, Trachea midline. negative: No JVD , Lymphadenopathy (R), Lymphadenopathy (L), Stiff neck, Carotid bruit, Swelling/ bruising Respiratory: positive: Chest non-tender, No respiratory distress, Breath sounds nml. negative: Wheezes, Rales, Rhonchi Cardiovascular: positive: Regular rate & rhythm, No murmur, No gallop. negative : Tachycardia, Bradycardia, Systolic murmur, Diastolic murmur, Decreased pulse(s ) Peripheral Pulses: 2+ Radial (R), 2+ Radial (L), 2+ Dorsalis pedis (R), 2+ Dorsalis pedis (L) Abdomen: positive: Non-tender, Nml bowel sounds, No distention. negative: Tenderness, Guarding, Rebound Back: positive: Nml inspection. negative: CVA tenderness (R), CVA tenderness (L ) Skin: positive: Color nml, No rash, Warm, Dry. negative: Diaphoresis, Pallor, Skin rash, Laceration (cm) Extremities: positive: Non-tender, Full ROM, Nml appearance, No pedal edema. negative: Pedal edema, Calf tenderness, Joint swelling, Savana's sign/cords Neurologic/Psychiatric: positive: Oriented x3, CN's nml (2-12), Motor nml, Sensation nml, Mood/affect nml. negative: Disoriented to person, Disoriented to place, Disoriented to time, Weakness, Sensory loss, Facial droop, Slurred/ abnml speech - Lab Results Fish Bones: 12/24/16 05:14 12/24/16 05:14 Other Labs: Lab Results x24hrs 12/22/16 12/22/16 12/22/16 Range/Units 15:00 03:56 03:56 WBC 17.9 H (4.8-10.8) x10^3/uL RBC 3.97 L (4.20-5.40) 10^6/uL Hgb 11.1 L (12.0-16.0) g/dL Hct 33.2 L (37.0-47.0) % MCV 83.6 (81.0-99.0) fL MCH 27.8 (27.0-31.0) pg MCHC 33.3 (32.0-36.0) g/dL RDW 14.3 (12.0-15.0) % Plt Count 227 (130-450) 10^3/uL MPV 8.3 (7.9-10.8) fL Neut # 14.9 H (1.5-6.6) 10^3/uL Lymph # 1.3 L (1.5-3.5) 10^3/uL [place] # 1.4 H (0.0-1.0) 10^3/uL Eos # 0.2 (0.0-0.7) 10^3/uL Baso # 0.1 (0.0-0.1) 10^3/uL Absolute Nucleated RBC 0.01 x10^3/uL Nucleated RBCs 0.0 /100WBC Sodium 138 (135-145) mmol/L Potassium 3.5 (3.5-5.0) mmol/L Chloride 103 (101-111) mmol/L Carbon Dioxide 28 (21-32) mmol/L Anion Gap 7.0 (6-13) BUN 6 (6-20) mg/dL Creatinine 0.6 (0.4-1.0) mg/dL Estimated GFR (MDRD) 117 (>89) Glucose 112 H (70-100) mg/dL Calcium 7.0 L (8.5-10.3) mg/dL Magnesium 1.9 (1.7-2.8) mg/dL Total Bilirubin 0.9 (0.2-1.0) mg/dL AST 45 H (10-42) IU/L ALT 110 H (10-60) IU/L Alkaline Phosphatase 93 (42-121) IU/L Total Protein 5.9 L (6.7-8.2) g/dL Albumin 3.0 L (3.2-5.5) g/dL Globulin 2.9 (2.1-4.2) g/dL Albumin/Globulin Ratio 1.0 (1.0-2.2) Last Dose Date 12/21/16 Last Dose Time 1000 Vancomycin Trough 3.6 L (5.0-15.0) ug/mL Assessment/Plan - Problem List (1) Gallstone pancreatitis Impression: lipase down to normal arrange, pain is good controlled. start to clear diet, continue to monitor (2) Pneumonia Impression: continue to treat, closely monitor
[2016-12-22] MEDS: POLYETHYLENE GLYCOL 3350 17 GM PACKET PO PRN (21:31)
[2016-12-23] MEDS: HYDROmorphone 1 MG/ML SYRINGE IVP PRN ×4 (01:42→15:41)
[2016-12-23] MEDS: PIPERACILLIN/TAZOBACTAM 3.375 GM in SODIUM CHLORIDE 0.9% MINIBAG 100 ML IV SCH ×4 (03:24→20:34)
[2016-12-23 05:44] LABS: BASOPHILS % (AUTO) 0.2 %; EOSINOPHILS # (AUTO) 0.2 10^3/uL (0.0-0.7); EOSINOPHILS % (AUTO) 1.5 %; HCT - HEMATOCRIT 31.7 % (37.0-47.0); HGB - HEMOGLOBIN 10.7 g/dL (12.0-16.0); LYMPHOCYTES # (AUTO) 1.4 10^3/uL (1.5-3.5); LYMPHOCYTES % (AUTO) 8.9 %; MEAN CORPUSCULAR HGB CONC 33.7 g/dL (32.0-36.0); MEAN CORPUSCULAR VOLUME 83.1 fL (81.0-99.0); MEAN PLATELET VOLUME 8.3 fL (7.9-10.8); MONOCYTES # (AUTO) 1.4 10^3/uL (0.0-1.0); MONOCYTES % (AUTO) 8.6 %; NEUTROPHILS # (AUTO) 12.8 10^3/uL (1.5-6.6); NEUTROPHILS % (AUTO) 80.8 %; NUCLEATED RED BLOOD CELLS AUTO 0.1 /100WBC; RED BLOOD COUNT 3.82 10^6/uL (4.20-5.40); RED CELL DISTRIBUTION WIDTH 14.5 % (12.0-15.0); UNCORRECTED WHITE BLOOD COUNT 15.9 x10^3/uL; WHITE BLOOD COUNT 15.9 x10^3/uL (4.8-10.8)
[2016-12-23 05:53] LABS: ALBUMIN/GLOBULIN RATIO 0.9 (1.0-2.2); BUN - BLOOD UREA NITROGEN < 5 mg/dL (6-20); CALCIUM 7.5 mg/dL (8.5-10.3); CARBON DIOXIDE - CO2 29 mmol/L (21-32); CHLORIDE 101 mmol/L (101-111); CREATININE 0.4 mg/dL (0.4-1.0); GFR - MDRD 187 (>89); GLUCOSE 111 mg/dL (70-100); MAGNESIUM 1.9 mg/dL (1.7-2.8); POTASSIUM 3.2 mmol/L (3.5-5.0); SODIUM 138 mmol/L (135-145); TOTAL PROTEIN 6.3 g/dL (6.7-8.2)
[2016-12-23] MEDS ORDERED: SODIUM CHLORIDE FLUSH 0.9% 10 ML SYRINGE IVP ONE ×2 (08:51→20:31)
[2016-12-23] MEDS: ACETAMINOPHEN 325 MG TABLET PO PRN ×2 (09:00→15:41)
[2016-12-23] MEDS: SENNA 8.6 MG TABLET PO SCH (09:35)
[2016-12-23] MEDS: VANCOMYCIN INJ 1 GM in SODIUM CHLORIDE 0.9% 250 ML IV SCH ×2 (09:35→17:03)
[2016-12-23] MEDS ORDERED: VANCOMYCIN 1 GM VIAL ONE (09:45)
[2016-12-23] MEDS: FAMOTIDINE 20 MG/50 ML 50 ML IV SCH ×2 (09:48→21:30)
[2016-12-23] MEDS: POTASSIUM CHLORIDE 20 MEQ TABLET PO SCH (09:48)
[2016-12-23] MEDS: DOCUSATE SODIUM 250 MG CAPSULE PO SCH (09:48)
[2016-12-23] MEDS: SACCHAROMYCES BOULARDII 250 MG CAPSULE PO SCH ×2 (09:48→17:04)
[2016-12-23] MEDS: CETIRIZINE 10 MG TABLET PO SCH (09:48)
[2016-12-23] MEDS: KETOROLAC 10 MG TABLET PO PRN (14:32)
--- NOTE | 2016-12-23 19:16 | PROVIDER PROGRESS NOTE ---
Subjective - Subjective Pt reports feeling: Improved Subjective: pt state she feels good, no other complaints Objective - Vital Signs/Intake & Output Vital Signs: Vital Signs x48h Temp Pulse Resp BP Pulse Ox 12/23/16 14:00 37.0 C 73 20 142/88 H 96 Intake & Output: Intake & Output 12/20/16 12/21/16 12/22/16 12/23/16 23:59 23:59 23:59 23:59 Intake Total 2424 2768 4487 3460 Balance 2424 2768 4487 3460 - Objective General Appearance: positive: No acute distress, Alert. negative: Lethargic Eyes Bilateral: positive: Normal inspection, PERRL. negative: No lid inflammation, Conjunctivae nml ENT: positive: ENT inspection nml, Pharynx nml, No signs of dehydration. negative: Purulent nasal drainage, Pharyngeal erythema, Oral lesions Neck: positive: Nml inspection, Thyroid nml. negative: Lymphadenopathy (R), Lymphadenopathy (L), Carotid bruit, Swelling/bruising Respiratory: positive: Chest non-tender, No respiratory distress, Breath sounds nml. negative: Wheezes, Rales, Rhonchi Cardiovascular: positive: Regular rate & rhythm, No murmur, No gallop. negative : Tachycardia, Bradycardia, Systolic murmur, Diastolic murmur Peripheral Pulses: 2+ Radial (R), 2+ Radial (L), 2+ Dorsalis pedis (R), 2+ Dorsalis pedis (L) Abdomen: positive: Non-tender, Nml bowel sounds, No distention. negative: Tenderness, Guarding, Rebound Back: positive: Nml inspection. negative: CVA tenderness (R), CVA tenderness (L ) Skin: positive: Color nml, No rash, Warm, Dry. negative: Diaphoresis, Skin rash , Laceration (cm) Extremities: positive: Non-tender, Full ROM, Nml appearance, No pedal edema. negative: Pedal edema, Calf tenderness Neurologic/Psychiatric: positive: Oriented x3, CN's nml (2-12), Motor nml, Sensation nml, Mood/affect nml. negative: Disoriented to person, Disoriented to place, Disoriented to time, Weakness, Sensory loss, Facial droop, Slurred/ abnml speech - Lab Results Fish Bones: 12/24/16 05:14 12/24/16 05:14 Other Labs: Lab Results x24hrs 12/23/16 12/23/16 12/23/16 Range/Units 07:48 05:09 05:09 WBC 15.9 H (4.8-10.8) x10^3/uL RBC 3.82 L (4.20-5.40) 10^6/uL Hgb 10.7 L (12.0-16.0) g/dL Hct 31.7 L (37.0-47.0) % MCV 83.1 (81.0-99.0) fL MCH 28.0 (27.0-31.0) pg MCHC 33.7 (32.0-36.0) g/dL RDW 14.5 (12.0-15.0) % Plt Count 240 (130-450) 10^3/uL MPV 8.3 (7.9-10.8) fL Neut # 12.8 H (1.5-6.6) 10^3/uL Lymph # 1.4 L (1.5-3.5) 10^3/uL [place] # 1.4 H (0.0-1.0) 10^3/uL Eos # 0.2 (0.0-0.7) 10^3/uL Baso # 0.0 (0.0-0.1) 10^3/uL Absolute Nucleated RBC 0.01 x10^3/uL Nucleated RBCs 0.1 /100WBC Sodium 138 (135-145) mmol/L Potassium 3.2 L (3.5-5.0) mmol/L Chloride 101 (101-111) mmol/L Carbon Dioxide 29 (21-32) mmol/L Anion Gap 8.0 (6-13) BUN < 5 L (6-20) mg/dL Creatinine 0.4 (0.4-1.0) mg/dL Estimated GFR (MDRD) 187 (>89) Glucose 111 H (70-100) mg/dL Calcium 7.5 L (8.5-10.3) mg/dL Magnesium 1.9 (1.7-2.8) mg/dL Total Bilirubin 1.0 (0.2-1.0) mg/dL AST 59 H (10-42) IU/L ALT 112 H (10-60) IU/L Alkaline Phosphatase 101 (42-121) IU/L Total Protein 6.3 L (6.7-8.2) g/dL Albumin 2.9 L (3.2-5.5) g/dL Globulin 3.4 (2.1-4.2) g/dL Albumin/Globulin Ratio 0.9 L (1.0-2.2) Last Dose Date 12/22/2016 Last Dose Time 2352 Vancomycin Trough 9.1 (5.0-15.0) ug/mL Assessment/Plan - Problem List (1) Gallstone pancreatitis Impression: pain is good controlled, lipase is already normal, will check again, pt is well tolerate the diet, up the diet to lower fat (2) Pneumonia Impression: continue to treat, pt's room air with 96% SO2, good lung sound, WBC continue to down.
[2016-12-23] MEDS ORDERED: SODIUM CHLORIDE FLUSH 0.9% 10 ML SYRINGE IVP PRN (20:32)
[2016-12-23] MEDS: oxyCOD/ACETAMIN 5 MG/325 MG TABLET PO PRN (20:33)
[2016-12-23] MEDS ORDERED: SODIUM CHLORIDE 0.9% 250 ML IV ONE (20:48)
[2016-12-24] MEDS: oxyCOD/ACETAMIN 5 MG/325 MG TABLET PO PRN ×4 (00:21→17:24)
[2016-12-24] MEDS: VANCOMYCIN INJ 1 GM in SODIUM CHLORIDE 0.9% 250 ML IV SCH ×3 (00:21→10:28)
[2016-12-24] MEDS: PIPERACILLIN/TAZOBACTAM 3.375 GM in SODIUM CHLORIDE 0.9% MINIBAG 100 ML IV SCH ×3 (02:36→18:38)
[2016-12-24 06:15] LABS: BASOPHILS # (AUTO) 0.1 10^3/uL (0.0-0.1); BASOPHILS % (AUTO) 0.4 %; EOSINOPHILS # (AUTO) 0.3 10^3/uL (0.0-0.7); EOSINOPHILS % (AUTO) 2.6 %; HCT - HEMATOCRIT 32.5 % (37.0-47.0); HGB - HEMOGLOBIN 10.8 g/dL (12.0-16.0); LYMPHOCYTES # (AUTO) 1.9 10^3/uL (1.5-3.5); LYMPHOCYTES % (AUTO) 14.6 %; MEAN CORPUSCULAR HEMOGLOBIN 27.8 pg (27.0-31.0); MEAN CORPUSCULAR HGB CONC 33.2 g/dL (32.0-36.0); MEAN CORPUSCULAR VOLUME 83.5 fL (81.0-99.0); MEAN PLATELET VOLUME 8.4 fL (7.9-10.8); MONOCYTES % (AUTO) 7.8 %; NEUTROPHILS # (AUTO) 9.8 10^3/uL (1.5-6.6); NEUTROPHILS % (AUTO) 74.6 %; RED BLOOD COUNT 3.89 10^6/uL (4.20-5.40); RED CELL DISTRIBUTION WIDTH 14.3 % (12.0-15.0); UNCORRECTED WHITE BLOOD COUNT 13.2 x10^3/uL; WHITE BLOOD COUNT 13.2 x10^3/uL (4.8-10.8)
[2016-12-24 06:28] LABS: ALBUMIN/GLOBULIN RATIO 0.9 (1.0-2.2); BILIRUBIN,TOTAL 0.7 mg/dL (0.2-1.0); CALCIUM 8.2 mg/dL (8.5-10.3); CREATININE 0.6 mg/dL (0.4-1.0); POTASSIUM 3.2 mmol/L (3.5-5.0); TOTAL PROTEIN 6.5 g/dL (6.7-8.2)
[2016-12-24] MEDS ORDERED: POTASSIUM CHLORIDE INJ 40 MEQ in SODIUM CHLORIDE 0.9% 480 ML IV ONE (07:03)
--- NOTE | 2016-12-24 07:05 | PROVIDER PROGRESS NOTE ---
Subjective - Subjective Pt reports feeling: Improved Subjective: pt state she feel better. room air, without O2 with So2 96%. She report no fever , chill, Short of breathing. Objective - Vital Signs/Intake & Output Vital Signs: Vital Signs x48h Temp Pulse Resp BP Pulse Ox 12/24/16 01:17 37.2 C 68 16 133/82 H 94 Intake & Output: Intake & Output 12/21/16 12/22/16 12/23/16 12/24/16 23:59 23:59 23:59 23:59 Intake Total 2768 4487 3640 300 Balance 2768 4487 3640 300 - Lab Results Fish Bones: 12/25/16 05:10 12/25/16 05:10 Other Labs: Lab Results x24hrs 12/24/16 12/24/16 12/23/16 Range/Units 05:14 05:14 07:48 WBC 13.2 H (4.8-10.8) x10^3/uL RBC 3.89 L (4.20-5.40) 10^6/uL Hgb 10.8 L (12.0-16.0) g/dL Hct 32.5 L (37.0-47.0) % MCV 83.5 (81.0-99.0) fL MCH 27.8 (27.0-31.0) pg MCHC 33.2 (32.0-36.0) g/dL RDW 14.3 (12.0-15.0) % Plt Count 261 (130-450) 10^3/uL MPV 8.4 (7.9-10.8) fL Neut # 9.8 H (1.5-6.6) 10^3/uL Lymph # 1.9 (1.5-3.5) 10^3/uL [place] # 1.0 (0.0-1.0) 10^3/uL Eos # 0.3 (0.0-0.7) 10^3/uL Baso # 0.1 (0.0-0.1) 10^3/uL Absolute Nucleated RBC 0.00 x10^3/uL Nucleated RBCs 0.0 /100WBC Sodium 141 (135-145) mmol/L Potassium 3.2 L (3.5-5.0) mmol/L Chloride 104 (101-111) mmol/L Carbon Dioxide 28 (21-32) mmol/L Anion Gap 9.0 (6-13) BUN 5 L (6-20) mg/dL Creatinine 0.6 (0.4-1.0) mg/dL Estimated GFR (MDRD) 117 (>89) Glucose 108 H (70-100) mg/dL Calcium 8.2 L (8.5-10.3) mg/dL Magnesium 2.0 (1.7-2.8) mg/dL Total Bilirubin 0.7 (0.2-1.0) mg/dL AST 40 (10-42) IU/L ALT 98 H (10-60) IU/L Alkaline Phosphatase 91 (42-121) IU/L Total Protein 6.5 L (6.7-8.2) g/dL Albumin 3.1 L (3.2-5.5) g/dL Globulin 3.4 (2.1-4.2) g/dL Albumin/Globulin Ratio 0.9 L (1.0-2.2) Lipase 82 H (22-51) U/L Last Dose Date 12/22/2016 Last Dose Time 2352 Vancomycin Trough 9.1 (5.0-15.0) ug/mL Assessment/Plan - Problem List (1) Gallstone pancreatitis Impression: follow up surgeon, pain controlled (2) Pneumonia Impression: pt's room air 96%SO2, no fever, chill, SOB, continue to treat, plan to D/C tomorrow (3) Hypokalemia Impression: continue slight lower K level, give pt 40 meq IV
[2016-12-24] MEDS: SACCHAROMYCES BOULARDII 250 MG CAPSULE PO SCH ×2 (09:24→17:24)
[2016-12-24] MEDS: FAMOTIDINE 20 MG TABLET PO SCH ×2 (09:25→20:39)
[2016-12-24] MEDS: DOCUSATE SODIUM 250 MG CAPSULE PO SCH (09:25)
[2016-12-24] MEDS: POTASSIUM CHLORIDE 20 MEQ TABLET PO SCH (09:25)
[2016-12-24] MEDS: CETIRIZINE 10 MG TABLET PO SCH (09:25)
[2016-12-24] MEDS: KETOROLAC 10 MG TABLET PO PRN (09:31)
[2016-12-24] MEDS: SENNA 8.6 MG TABLET PO SCH (09:36)
--- NOTE | 2016-12-24 09:52 | XRAY Report ---
FRONTAL CHEST: 12/24/2016 CLINICAL INDICATION: Cough. COMPARISON: 12/21/2016. FINDINGS: Frontal view of the chest demonstrates minimal interval improvement in widespread bilatera l infiltrates. The cardiac silhouette is within normal limits. No effusion or pneumothorax. IMPRESSION: MINIMAL INTERVAL IMPROVEMENT IN WIDESPREAD BILATERAL INFILTRATES. JOB #: [id number] EXT JOB #:[id number]
--- NOTE | 2016-12-24 17:18 | PROVIDER PROGRESS NOTE ---
Subjective - General Admit Date: 12/19/16 - Review of Systems Pulmonary: positive: Other (no c/o sob now) Gastrointestinal: positive: Abdominal pain (improving but still present), Other (no c/o abdominal pain) All Other Systems: positive: Reviewed and negative Objective - Patient Data Vital Signs: Vital Signs x48h Temp Pulse Resp BP Pulse Ox 12/24/16 16:42 37.2 C 51 L 18 137/81 H 99 12/24/16 09:50 37.0 C 68 14 128/63 96 Intake & Output: Intake and Output Totals x24h 12/22/16 12/23/16 12/24/16 23:59 23:59 23:59 Intake Total 4487 3640 1100 Balance 4487 3640 1100 - Lab Results Lab Results: 12/24/16 05:14 12/24/16 05:14 Other Lab Results: Lab Results x24hrs 12/24/16 12/24/16 Range/Units 05:14 05:14 WBC 13.2 H (4.8-10.8) x10^3/uL RBC 3.89 L (4.20-5.40) 10^6/uL Hgb 10.8 L (12.0-16.0) g/dL Hct 32.5 L (37.0-47.0) % MCV 83.5 (81.0-99.0) fL MCH 27.8 (27.0-31.0) pg MCHC 33.2 (32.0-36.0) g/dL RDW 14.3 (12.0-15.0) % Plt Count 261 (130-450) 10^3/uL MPV 8.4 (7.9-10.8) fL Neut # 9.8 H (1.5-6.6) 10^3/uL Lymph # 1.9 (1.5-3.5) 10^3/uL [place] # 1.0 (0.0-1.0) 10^3/uL Eos # 0.3 (0.0-0.7) 10^3/uL Baso # 0.1 (0.0-0.1) 10^3/uL Absolute Nucleated RBC 0.00 x10^3/uL Nucleated RBCs 0.0 /100WBC Sodium 141 (135-145) mmol/L Potassium 3.2 L (3.5-5.0) mmol/L Chloride 104 (101-111) mmol/L Carbon Dioxide 28 (21-32) mmol/L Anion Gap 9.0 (6-13) BUN 5 L (6-20) mg/dL Creatinine 0.6 (0.4-1.0) mg/dL Estimated GFR (MDRD) 117 (>89) Glucose 108 H (70-100) mg/dL Calcium 8.2 L (8.5-10.3) mg/dL Magnesium 2.0 (1.7-2.8) mg/dL Total Bilirubin 0.7 (0.2-1.0) mg/dL AST 40 (10-42) IU/L ALT 98 H (10-60) IU/L Alkaline Phosphatase 91 (42-121) IU/L Total Protein 6.5 L (6.7-8.2) g/dL Albumin 3.1 L (3.2-5.5) g/dL Globulin 3.4 (2.1-4.2) g/dL Albumin/Globulin Ratio 0.9 L (1.0-2.2) Lipase 82 H (22-51) U/L - Current Medications Current Medications: Current Medications Generic Name Dose Route Start Last Admin Trade Name Freq PRN Reason Stop Dose Admin Acetaminophen 650 mg 12/20/16 06:21 12/23/16 15:41 Tylenol PO 650 mg Q4HR PRN Administration Pain or Fever > 38C (100.4F) Benzonatate 100 mg 12/21/16 01:43 12/22/16 04:19 Tessalon PO 100 mg TID PRN Administration Cough Cetirizine HCl 10 mg 12/21/16 02:00 12/24/16 09:25 Zyrtec PO 10 mg DAILY JACK Administration Docusate Sodium 250 - 500 mg 12/22/16 13:00 12/24/16 09:25 Colace 250mg Capsule PO Not Given DAILY JACK Famotidine 20 mg 12/24/16 09:00 12/24/16 09:25 Pepcid PO 20 mg BID JACK Administration Hydromorphone HCl 1 mg 12/19/16 06:42 12/23/16 15:41 Dilaudid Inj IVP 1 mg Q2HR PRN Administration Mild Pain Piperacillin Sod/Tazobactam 100 mls @ 200 mls/hr 12/22/16 14:30 12/24/16 09:39 Sod 3.375 gm/ Sodium Chloride IV 200 mls/hr Q6H JACK Administration Vancomycin HCl 1 gm/ Sodium 250 mls @ 167 mls/hr 12/22/16 16:00 12/24/16 10:28 Chloride IV 167 mls/hr Q8H JACK Administration Ketorolac Tromethamine 10 mg 12/23/16 14:07 12/24/16 09:31 Toradol PO 12/28/16 14:06 10 mg Q6HR PRN Administration PAIN Ondansetron HCl 4 mg 12/19/16 06:43 12/20/16 16:16 Zofran Inj IVP 4 mg Q6HR PRN Administration Nausea / Vomiting Oxycodone/Acetaminophen 1 tab 12/23/16 19:21 12/24/16 12:27 Percocet 5 Mg/325 Mg PO 1 tab Q4HR PRN Administration PAIN Polyethylene Glycol 17 gm 12/21/16 17:20 12/22/16 21:31 Miralax PO 17 gm DAILY PRN Administration Bowel Protocol Potassium Chloride 20 meq 12/23/16 09:00 12/24/16 09:25 K-Dur PO 20 meq DAILYWM JACK Administration Saccharomyces Boulardii 250 mg 12/22/16 08:00 12/24/16 09:24 Florastor PO 250 mg BIDWM JACK Administration Senna 8.6 - 17.2 mg 12/22/16 13:00 12/24/16 09:36 Senokot PO Not Given DAILY JACK Throat Lozenges 1 lozenge 12/22/16 05:00 12/22/16 07:30 Cepacol MM 1 lozenge Q2HR PRN Administration Mouth Sore Pain - Physical Exam Abdomen: positive: Non-tender Impression/Plan - Problem List Problem List: 1) gallstone pancreatitis. Patient feeling a little bloated but improving. No c /o abdominal pain now. Tolerating low fat diet. Will consider lap cholecystectomy in 2-3 weeks to allow pneumonia to fully resolve. 2) pneumonia being follow by the hospitalists. WBC on Iv antibiotics almost normalized.
[2016-12-24] MEDS ORDERED: VANCOMYCIN INJ 1 GM in SODIUM CHLORIDE 0.9% 250 ML IV SCH (19:00)
[2016-12-24] MEDS: HYDROmorphone 1 MG/ML SYRINGE IVP PRN (19:32)
[2016-12-25] MEDS: oxyCOD/ACETAMIN 5 MG/325 MG TABLET PO PRN ×3 (00:40→13:28)
[2016-12-25] MEDS: PIPERACILLIN/TAZOBACTAM 3.375 GM in SODIUM CHLORIDE 0.9% MINIBAG 100 ML IV SCH (03:42)
[2016-12-25 05:50] LABS: BASOPHILS % (AUTO) 0.3 %; EOSINOPHILS # (AUTO) 0.4 10^3/uL (0.0-0.7); EOSINOPHILS % (AUTO) 3.1 %; HCT - HEMATOCRIT 31.8 % (37.0-47.0); HGB - HEMOGLOBIN 10.5 g/dL (12.0-16.0); LYMPHOCYTES # (AUTO) 2.1 10^3/uL (1.5-3.5); LYMPHOCYTES % (AUTO) 15.2 %; MEAN CORPUSCULAR HEMOGLOBIN 27.7 pg (27.0-31.0); MEAN CORPUSCULAR HGB CONC 33.1 g/dL (32.0-36.0); MEAN CORPUSCULAR VOLUME 83.7 fL (81.0-99.0); MEAN PLATELET VOLUME 8.2 fL (7.9-10.8); MONOCYTES # (AUTO) 0.9 10^3/uL (0.0-1.0); MONOCYTES % (AUTO) 6.7 %; NEUTROPHILS # (AUTO) 10.5 10^3/uL (1.5-6.6); NEUTROPHILS % (AUTO) 74.7 %; NUCLEATED RED BLOOD CELLS AUTO 0.1 /100WBC; RED CELL DISTRIBUTION WIDTH 14.1 % (12.0-15.0)
[2016-12-25 06:03] LABS: ALBUMIN/GLOBULIN RATIO 0.9 (1.0-2.2); BILIRUBIN,TOTAL 0.6 mg/dL (0.2-1.0); CREATININE 0.7 mg/dL (0.4-1.0); POTASSIUM 3.5 mmol/L (3.5-5.0); TOTAL PROTEIN 6.1 g/dL (6.7-8.2)
[2016-12-25] MEDS: SACCHAROMYCES BOULARDII 250 MG CAPSULE PO SCH (08:34)
[2016-12-25] MEDS: CETIRIZINE 10 MG TABLET PO SCH (08:34)
[2016-12-25] MEDS: POTASSIUM CHLORIDE 20 MEQ TABLET PO SCH (08:34)
[2016-12-25] MEDS: FAMOTIDINE 20 MG TABLET PO SCH (08:35)
[2016-12-25] MEDS: DOCUSATE SODIUM 250 MG CAPSULE PO SCH (08:35)
[2016-12-25] MEDS: SENNA 8.6 MG TABLET PO SCH (08:37)
[2016-12-25] MEDS ORDERED: levoFLOXacin 250 MG TABLET PO SCH (09:00)
[2016-12-25 09:04] VITALS: BP 135/74
--- NOTE | 2016-12-25 09:34 | PROVIDER PROGRESS NOTE ---
Subjective - Subjective Pt reports feeling: Improved Subjective: pt state she feel great, is ready to D/C to home. no other complaints Objective - Vital Signs/Intake & Output Vital Signs: Vital Signs x48h Temp Pulse Resp BP Pulse Ox 12/25/16 09:02 37.2 C 55 L 18 135/74 H 96 Intake & Output: Intake & Output 12/22/16 12/23/16 12/24/16 12/25/16 23:59 23:59 23:59 23:59 Intake Total 4487 3640 1400 600 Output Total 1 Balance 4487 3640 1400 599 - Lab Results Fish Bones: 12/25/16 05:10 12/25/16 05:10 Other Labs: Lab Results x24hrs 12/25/16 12/25/16 Range/Units 05:10 05:10 WBC 14.0 H (4.8-10.8) x10^3/uL RBC 3.80 L (4.20-5.40) 10^6/uL Hgb 10.5 L (12.0-16.0) g/dL Hct 31.8 L (37.0-47.0) % MCV 83.7 (81.0-99.0) fL MCH 27.7 (27.0-31.0) pg MCHC 33.1 (32.0-36.0) g/dL RDW 14.1 (12.0-15.0) % Plt Count 275 (130-450) 10^3/uL MPV 8.2 (7.9-10.8) fL Neut # 10.5 H (1.5-6.6) 10^3/uL Lymph # 2.1 (1.5-3.5) 10^3/uL [place] # 0.9 (0.0-1.0) 10^3/uL Eos # 0.4 (0.0-0.7) 10^3/uL Baso # 0.0 (0.0-0.1) 10^3/uL Absolute Nucleated RBC 0.01 x10^3/uL Nucleated RBCs 0.1 /100WBC Sodium 140 (135-145) mmol/L Potassium 3.5 (3.5-5.0) mmol/L Chloride 106 (101-111) mmol/L Carbon Dioxide 27 (21-32) mmol/L Anion Gap 7.0 (6-13) BUN 5 L (6-20) mg/dL Creatinine 0.7 (0.4-1.0) mg/dL Estimated GFR (MDRD) 98 (>89) Glucose 110 H (70-100) mg/dL Calcium 8.0 L (8.5-10.3) mg/dL Total Bilirubin 0.6 (0.2-1.0) mg/dL AST 26 (10-42) IU/L ALT 75 H (10-60) IU/L Alkaline Phosphatase 80 (42-121) IU/L Total Protein 6.1 L (6.7-8.2) g/dL Albumin 2.9 L (3.2-5.5) g/dL Globulin 3.2 (2.1-4.2) g/dL Albumin/Globulin Ratio 0.9 L (1.0-2.2) Assessment/Plan - Problem List (1) Gallstone pancreatitis Impression: stable, follow up surgeon (2) Pneumonia Impression: stable, Room air SO2 96%, no cough, no fever or chill, pt may be d/c today, with po antibiotics, pain control, follow up CXR in one week, and follow up surgeon. (3) Hypokalemia Impression: resolved
--- NOTE | 2016-12-25 12:46 | DISCHARGE SUMMARY ---
Discharge Summary Admit Date: 12/19/16 Code Status: Attempt Resuscitation Condition at Discharge: Good Discharge Disposition: 01 Home, Self Care - ALLERGIES Allergies/Adverse Reactions: Allergies Allergy/AdvReac Type Severity Reaction Status Date / Time codeine Allergy Hallucinati Verified 12/19/16 02:51 ons - MEDICATIONS Home Medications: Ambulatory Orders Medication Instructions Recorded Confirmed Metformin HCl 1,000 mg PO BID 12/19/16 12/19/16 - LABS Result Diagrams: 12/25/16 05:10 12/25/16 05:10
--- NOTE | 2016-12-25 14:08 | Discharge Plan ---
Discharge Plan Disposition: 01 Home, Self Care Condition: Good Prescriptions: levoFLOXacin [Levaquin] 750 mg PO DAILY #7 tablet Diet: Regular (low fat) Activity Restrictions: No Restrictions Shower Restrictions: Yes Driving Restrictions: No Instruction Topics: Levofloxacin tablets, Gallstones, Gallstones Tx, Pancreatitis Additional Instructions or Follow Up instructions: f/u pcp 1 week for pneumonia No Smoking: If you smoke, Please STOP! Call for help. Follow-up with: David Sigala MD [Provider Admit Priv/Credential] - 2 Weeks
== END 2016-12-25 14:15 | disposition home or self-care (01) | DRG 438 ==
LOC: ED 02:43 → MS3 06:41 → OBSVTOIN 06:41
PROVIDERS: ADMIT Surgery; ATTEND Surgery
DX: K85.10 Biliary acute pancreatitis without necrosis or infection (principal); J18.9 Pneumonia, unspecified organism; K80.20 Calculus of gallbladder without cholecystitis without obstruction; E28.2 Polycystic ovarian syndrome; K76.0 Fatty (change of) liver, not elsewhere classified; E87.6 Hypokalemia; Z79.899 Other long term (current) drug therapy
CPT/HCPCS: 36415; 71010; 71020; 76705; 80053; 81001; 81003; 82150; 83690; 83735; 84702; 85025; 87086; 96374; 96375; 96376; 99283; 99285

== ENCOUNTER 2017-01-18 12:26 | Outpatient (CLI) | payer OTHER ==
[2017-01-18 13:35] LABS: ALBUMIN/GLOBULIN RATIO 1.4 (1.0-2.2); BILIRUBIN,TOTAL 0.3 mg/dL (0.2-1.0); CALCIUM 9.2 mg/dL (8.5-10.3); CREATININE 0.6 mg/dL (0.4-1.0); POTASSIUM 4.2 mmol/L (3.5-5.0); TOTAL PROTEIN 7.6 g/dL (6.7-8.2)
== END 2017-01-18 12:27 | disposition home or self-care (01) ==
LOC: LAB 12:26
PROVIDERS: ATTEND Surgery
DX: K85.10 Biliary acute pancreatitis without necrosis or infection (principal)
CPT/HCPCS: 36415; 80053; 83690

== ENCOUNTER 2017-01-21 18:10 | Inpatient (IN) | payer OTHER ==
--- NOTE | 2017-01-21 18:26 | ED Physician Documentation ---
PD HPI ABD PAIN - Stated complaint Stated Complaint: ABD PX - Chief complaint Chief Complaint: Abd Pain - History obtained from History obtained from: Patient, EMS - History of Present Illness Timing - onset: How many hours ago (1), Today Timing - duration: Hours (1) Timing - details: Abrupt onset Pain level max: 8 Pain level now: 4 Quality: Aching, Pain Location: RUQ Radiation: No: Chest, , Lower back, Left flank, Left shoulder, Right flank, Right shoulder, Upper back Improved by: Other (oxycodone) Worsened by: Eating Associated symptoms: No: Fever, Nausea, Vomiting, Hematemesis, Diarrhea, Constipation, Melena, Hematochezia, Dysuria, Hematuria, Chest pain, Dizzy Similar symptoms before: Diagnosis (gallstone pancreatitis) - Additional information Additional information: Patient is scheduled for cholecystectomy with Dr. Sigala on Saturday. Review of Systems Ten Systems: 10 systems reviewed and negative Constitutional: denies: Fever, Chills Nose: denies: Rhinorrhea / runny nose, Congestion Cardiac: denies: Chest pain / pressure Respiratory: denies: Cough Skin: denies: Rash Musculoskeletal: denies: Neck pain, Back pain Neurologic: denies: Headache PD PAST MEDICAL HISTORY - Past Medical History Cardiovascular: None Respiratory: None Neuro: None Endocrine/Autoimmune: None GI: None [employer]: Other : None HEENT: None Psych: None Musculoskeletal: None Derm: None - Past Surgical History Past Surgical History: Yes Ortho: Other - Present Medications Home Medications: Ambulatory Orders Medication Instructions Recorded Confirmed Metformin HCl 1,000 mg PO BID 12/19/16 01/18/17 - Allergies Allergies/Adverse Reactions: Allergies Allergy/AdvReac Type Severity Reaction Status Date / Time codeine Allergy Hallucinati Verified 12/19/16 02:51 ons - Social History Does the pt smoke?: No Smoking Status: Never smoker Does the pt drink ETOH?: No - Immunizations Immunizations are current?: Yes PD ED PE NORMAL - Vitals Vital signs reviewed: Yes - General General: Alert and oriented X 3, No acute distress, Well developed/nourished - HEENT HEENT: Moist mucous membranes - Neck Neck: Supple, no meningeal sign - Cardiac Cardiac: RRR, Strong equal pulses - Respiratory Respiratory: No respiratory distress, Clear bilaterally - Abdomen Abdomen: Soft, Other (Tender palpation right upper quadrant and epigastric. Negative Montes's) - Back Back: No CVA TTP, No spinal TTP - Derm Derm: Warm and dry - Neuro Neuro: Alert and oriented X 3 - Psych Psych: Normal mood, Normal affect Results - Vitals Vitals: Vital Signs - 24 hr 01/21/17 01/21/17 01/21/17 18:14 20:47 22:27 Temperature 37 C Heart Rate 102 H 88 88 Respiratory 16 18 18 Rate Blood Pressure 137/82 H 132/82 H 141/75 H O2 Saturation 98 96 98 Oxygen O2 Source Room air - Labs Labs: Laboratory Tests 01/21/17 01/21/17 01/21/17 18:30 18:30 19:53 WBC 16.1 H RBC 5.10 Hgb 13.9 Hct 41.7 MCV 81.8 MCH 27.2 MCHC 33.2 RDW 14.5 Plt Count 282 MPV 8.5 Neut # 12.3 H Lymph # 2.7 [place] # 0.8 Eos # 0.2 Baso # 0.1 Absolute Nucleated RBC 0.00 Nucleated RBCs 0.0 Sodium 140 Potassium 3.4 L Chloride 105 Carbon Dioxide 25 Anion Gap 10.0 BUN 9 Creatinine 0.7 Estimated GFR (MDRD) 98 Glucose 101 H Calcium 9.5 Total Bilirubin 0.5 AST 92 H ALT 62 H Alkaline Phosphatase 65 Total Protein 7.4 Albumin 4.2 Globulin 3.2 Albumin/Globulin Ratio 1.3 Lipase 194 H Urine Color DARK YELLOW Urine Clarity CLOUDY Urine pH 5.5 Ur Specific [place] >=1.030 H Urine Protein 100 H Urine Glucose (UA) NEGATIVE Urine Ketones TRACE Urine Occult Blood LARGE H Urine Nitrite NEGATIVE Urine Bilirubin NEGATIVE Urine Urobilinogen 0.2 (NORMAL) Ur Leukocyte Esterase NEGATIVE Urine RBC TNTC H Urine WBC 4-5 Ur Squamous Epith Cells FEW Squamous Urine Bacteria None Seen Ur Microscopic Review INDICATED Urine Culture Comments NOT INDICATED Urine HCG, Qual NEGATIVE - Rads (name of study) Right upper quadrant ultrasound Radiology: Prelim report reviewed, EMP read contemporaneously, See rad report ( Fatty liver. Multiple cholelithiasis without signs of cholecystitis and without dilated ducts. ) PD MEDICAL DECISION MAKING - ED course Complexity details: reviewed results, re-evaluated patient, considered differential, d/w patient, d/w family, d/w managing consultant clinical professor ED course: Patient is a 31-year-old female who presents to the emergency department with what appears to be recurrent biliary colic and possible early pancreatitis. Pain well controlled in the emergency department, but she is still having pain. Elevated white blood cell count and liver function tests. Discussed the case with Dr. Sigala, surgery on-call, who will admit the patient for further observation. This document was made in part using voice recognition software. While efforts are made to proofread this document, sound alike and grammatical errors may occur. Departure - Departure Disposition: ED Place in Observation Clinical Impression: Biliary colic Pancreatitis Qualifiers: Chronicity: acute Pancreatitis type: unspecified pancreatitis type Acute pancreatitis complication: unspecified Qualified Code(s): K85.90 - Acute pancreatitis without necrosis or infection, unspecified Condition: Stable Discharge Date/Time: 01/21/17 23:00
[2017-01-21 18:38] LABS: BASOPHILS # (AUTO) 0.1 10^3/uL (0.0-0.1); BASOPHILS % (AUTO) 0.8 %; EOSINOPHILS # (AUTO) 0.2 10^3/uL (0.0-0.7); EOSINOPHILS % (AUTO) 1.3 %; HCT - HEMATOCRIT 41.7 % (37.0-47.0); HGB - HEMOGLOBIN 13.9 g/dL (12.0-16.0); LYMPHOCYTES # (AUTO) 2.7 10^3/uL (1.5-3.5); LYMPHOCYTES % (AUTO) 16.7 %; MEAN CORPUSCULAR HEMOGLOBIN 27.2 pg (27.0-31.0); MEAN CORPUSCULAR HGB CONC 33.2 g/dL (32.0-36.0); MEAN CORPUSCULAR VOLUME 81.8 fL (81.0-99.0); MEAN PLATELET VOLUME 8.5 fL (7.9-10.8); MONOCYTES # (AUTO) 0.8 10^3/uL (0.0-1.0); MONOCYTES % (AUTO) 4.8 %; NEUTROPHILS # (AUTO) 12.3 10^3/uL (1.5-6.6); NEUTROPHILS % (AUTO) 76.4 %; RED CELL DISTRIBUTION WIDTH 14.5 % (12.0-15.0); UNCORRECTED WHITE BLOOD COUNT 16.1 x10^3/uL; WHITE BLOOD COUNT 16.1 x10^3/uL (4.8-10.8)
[2017-01-21 18:51] LABS: ALBUMIN/GLOBULIN RATIO 1.3 (1.0-2.2); BILIRUBIN,TOTAL 0.5 mg/dL (0.2-1.0); CALCIUM 9.5 mg/dL (8.5-10.3); CREATININE 0.7 mg/dL (0.4-1.0); POTASSIUM 3.4 mmol/L (3.5-5.0); TOTAL PROTEIN 7.4 g/dL (6.7-8.2)
[2017-01-21] MEDS ORDERED: HYDROmorphone 1 MG/ML SYRINGE IVP STA ×2 (19:02→22:13)
--- NOTE | 2017-01-21 19:55 | Ultrasound Preliminary Report ---
Exam: US Abdomen Limited IMPRESSION: 1. Fatty liver. 2. Multiple cholelithiasis without signs of cholecystitis and without dilated ducts. [facility] SITE ID: [id number]
[2017-01-21] MEDS ORDERED: HYDROmorphone 1 MG/ML SYRINGE ONE (19:57)
--- NOTE | 2017-01-21 19:58 | Ultrasound Report ---
EXAM: ABDOMEN ULTRASOUND LIMITED, RUQ EXAM DATE: 01/21/2017 06:55 PM. CLINICAL HISTORY: RUQ pain. History of gallstones. COMPARISON: 12/19/2016. TECHNIQUE: Real-time scanning was performed with static images obtained. FINDINGS: Liver: Normal in size. Hyperechoic echotexture. 17.6 cm. Main portal vein flow: Hepatopetal. Gallbladder: Gallbladder filled with stones. No wall thickening or sonographic Montes's sign. Biliary System: CBD measures 3 mm. No intrahepatic or extrahepatic ductal dilatation. Other: The visualized pancreas and right kidney are unremarkable. No free fluid. IMPRESSION: 1. Fatty liver. 2. Multiple cholelithiasis without signs of cholecystitis and without dilated ducts. [facility] Referring Provider Line: [phone] SITE ID: [id number]
[2017-01-21 20:01] LABS: PH,URINE 5.5 PH (5.0-7.5)
[2017-01-21 20:03] LABS: HCG UR QUAL NEGATIVE; UA w/ MICROSCOPIC CHARGE YES
[2017-01-21 20:15] LABS: BILIRUBIN,URINE NEGATIVE (NEGATIVE)
[2017-01-21 20:16] LABS: UR CULTURE IF IND NOT INDICATED
[2017-01-21] MEDS ORDERED: HYDROmorphone 1 MG/ML SYRINGE IVP PRN (20:38)
[2017-01-21] MEDS: ONDANSETRON 4 MG/2 ML VIAL IVP PRN (23:48)
[2017-01-21] MEDS: HYDROmorphone 1 MG/ML SYRINGE IVP PRN (23:48)
[2017-01-21] MEDS: SODIUM CHLORIDE FLUSH 0.9% 10 ML SYRINGE IVP SCH (23:49)
[2017-01-21] MEDS: SODIUM CHLORIDE FLUSH 0.9% 10 ML SYRINGE IVP PRN (23:49)
[2017-01-21] MEDS: SODIUM CHLORIDE 0.9% 1,000 ML IV SCH (23:53)
[2017-01-22] MEDS: SODIUM CHLORIDE FLUSH 0.9% 10 ML SYRINGE IVP SCH ×3 (05:33→19:50)
[2017-01-22] MEDS: HYDROmorphone 1 MG/ML SYRINGE IVP PRN ×5 (05:34→23:48)
[2017-01-22] MEDS: SODIUM CHLORIDE 0.9% 1,000 ML IV SCH ×4 (05:34→23:48)
[2017-01-22] MEDS: ONDANSETRON 4 MG/2 ML VIAL IVP PRN (05:34)
[2017-01-22 05:42] LABS: BASOPHILS # (AUTO) 0.1 10^3/uL (0.0-0.1); BASOPHILS % (AUTO) 0.5 %; EOSINOPHILS # (AUTO) 0.1 10^3/uL (0.0-0.7); EOSINOPHILS % (AUTO) 1.1 %; HCT - HEMATOCRIT 38.3 % (37.0-47.0); HGB - HEMOGLOBIN 12.7 g/dL (12.0-16.0); LYMPHOCYTES # (AUTO) 2.8 10^3/uL (1.5-3.5); LYMPHOCYTES % (AUTO) 27.3 %; MEAN CORPUSCULAR HEMOGLOBIN 27.5 pg (27.0-31.0); MEAN CORPUSCULAR HGB CONC 33.2 g/dL (32.0-36.0); MEAN CORPUSCULAR VOLUME 82.8 fL (81.0-99.0); MEAN PLATELET VOLUME 8.3 fL (7.9-10.8); MONOCYTES # (AUTO) 0.7 10^3/uL (0.0-1.0); MONOCYTES % (AUTO) 6.4 %; NEUTROPHILS # (AUTO) 6.7 10^3/uL (1.5-6.6); NEUTROPHILS % (AUTO) 64.7 %; RED BLOOD COUNT 4.62 10^6/uL (4.20-5.40); RED CELL DISTRIBUTION WIDTH 14.6 % (12.0-15.0); UNCORRECTED WHITE BLOOD COUNT 10.4 x10^3/uL; WHITE BLOOD COUNT 10.4 x10^3/uL (4.8-10.8)
[2017-01-22 05:51] LABS: ALBUMIN/GLOBULIN RATIO 1.4 (1.0-2.2); BILIRUBIN,TOTAL 0.3 mg/dL (0.2-1.0); CALCIUM 8.5 mg/dL (8.5-10.3); CREATININE 0.6 mg/dL (0.4-1.0); POTASSIUM 3.9 mmol/L (3.5-5.0); TOTAL PROTEIN 6.2 g/dL (6.7-8.2)
[2017-01-22] MEDS: SODIUM CHLORIDE FLUSH 0.9% 10 ML SYRINGE IVP PRN ×3 (10:05→23:48)
[2017-01-23] MEDS: SODIUM CHLORIDE FLUSH 0.9% 10 ML SYRINGE IVP SCH ×3 (05:31→19:10)
[2017-01-23] MEDS: HYDROmorphone 1 MG/ML SYRINGE IVP PRN ×4 (05:31→21:41)
[2017-01-23 06:01] LABS: ALBUMIN/GLOBULIN RATIO 1.4 (1.0-2.2); BILIRUBIN,TOTAL 0.4 mg/dL (0.2-1.0); CALCIUM 8.3 mg/dL (8.5-10.3); CREATININE 0.6 mg/dL (0.4-1.0); TOTAL PROTEIN 5.8 g/dL (6.7-8.2)
[2017-01-23] MEDS: SODIUM CHLORIDE FLUSH 0.9% 10 ML SYRINGE IVP PRN (09:15)
[2017-01-23] MEDS: SODIUM CHLORIDE 0.9% 1,000 ML IV SCH ×2 (09:16→17:09)
[2017-01-23] MEDS ORDERED: cefOXitin 2 GM in SODIUM CHLORIDE 0.9% MINIBAG 100 ML IV SCH (12:00)
[2017-01-23 12:42] LABS: HCG UR QUAL NEGATIVE
[2017-01-23] MEDS ORDERED: BUPIVACAINE 0.5%-EPI 1:200000 PF 30 ML VIAL SUBQ ONE ×2 (13:32)
[2017-01-23] MEDS ORDERED: IOTHALAMATE MEGLUMINE 50 ML VIAL INTRADUCT ONE ×3 (13:33→14:07)
[2017-01-23] MEDS ORDERED: HYDROmorphone 1 MG/ML SYRINGE IVP ONE (13:35)
[2017-01-23] MEDS ORDERED: MIDAZOLAM 2 MG/2 ML VIAL IVP ONE (13:35)
[2017-01-23] MEDS ORDERED: LACTATED RINGERS 1,000 ML IV ONE ×5 (13:35)
[2017-01-23] MEDS ORDERED: PROPOFOL 200 MG/20 ML VIAL IVP ONE (13:35)
[2017-01-23] MEDS ORDERED: ONDANSETRON 4 MG/2 ML VIAL IVP ONE (13:35)
[2017-01-23] MEDS ORDERED: NEOSTIGMINE 1 MG/1 ML 10 ML MDV IVP ONE (13:35)
[2017-01-23] MEDS ORDERED: DEXAMETHASONE 4 MG/ML VIAL IVP ONE (13:35)
[2017-01-23] MEDS ORDERED: SUCCINYLCHOLINE 200 MG/10 ML VIAL IVP ONE (13:35)
[2017-01-23] MEDS ORDERED: GLYCOPYRROLATE 1 MG/5 ML VIAL IVP ONE (13:35)
[2017-01-23] MEDS ORDERED: fentaNYL 100 MCG/2 ML VIAL IVP ONE (13:35)
[2017-01-23] MEDS ORDERED: LIDOCAINE-MPF 2% 5 ML VIAL IM ONE (13:35)
[2017-01-23] MEDS ORDERED: ACETAMINOPHEN 1,000 MG/100 ML 100 ML IV ONE (13:35)
[2017-01-23] MEDS ORDERED: ROCURONIUM 50 MG/5 ML VIAL IVP ONE (13:35)
[2017-01-23] MEDS ORDERED: HYDROcod/ACETAM 5/325 MG TABLET PO PRN (15:47)
[2017-01-23] MEDS: HYDROmorphone 1 MG/ML SYRINGE ONE ×2 (16:25→16:37)
--- NOTE | 2017-01-23 16:48 | XRAY Report ---
INTRAOPERATIVE CHOLANGIOGRAM: 01/23/2017 CLINICAL INDICATION: Laparoscopic cholecystectomy. FINDINGS: A single intraoperative matrix image of a cholangiogram demonstrates opacification of the common bile duct and proximal intrahepatic ducts. Contrast spills into the duodenum. Twelve seconds of fluoroscopy time was provided to Dr. Sigala; one spot image obtained. IMPRESSION: NORMAL INTRAOPERATIVE CHOLANGIOGRAM. JOB #: [id number] EXT JOB #:[id number]
[2017-01-23] MEDS: HYDROcod/ACETAM 5/325 MG TABLET PO PRN ×2 (19:08→23:45)
--- NOTE | 2017-01-24 01:52 | OPERATIVE REPORT ---
DATE OF SURGERY: 01/23/2017 00:00:00 PREOPERATIVE DIAGNOSIS: Gallstone pancreatitis. POSTOPERATIVE DIAGNOSIS: Gallstone pancreatitis. OPERATION PERFORMED: Laparoscopic cholecystectomy with intraoperative cholangiogram. OPERATING SURGEON: David Sigala MD. ANESTHESIA: General. INDICATIONS FOR PROCEDURE: The patient is a 31-year-old female who presents with right upper quadrant abdominal pain approximately 3 weeks ago. She was found to have a gallstone pancreatitis. She was pl anned to undergo cholecystectomy; however, she had pneumonia. She had been treated for pneumonia and now this has resolved. She presents to the emergency room 2 days ago again with abdominal pain. She h ad mildly elevated liver function tests and lipase. She currently does not have any pain and will und ergo a laparoscopic cholecystectomy with intraoperative cholangiogram, possible laparotomy. The risks and possible complications of surgery have been explained to her and include, but are not limited to bleeding, infection, anesthesia risk, heart and lung problems, wound healing problems, injuries to a bdominal structure such as bile duct or intestine causing morbidity and need for further intervention , wound healing problems, hernia formation, need for ERCP if she is found to have a common bile duct stones, continued elevated liver function tests or lipase secondary to other medical conditions etc., and she accepts the risks and wishes to proceed. FINDINGS AT SURGERY: The patient had a gallbladder that was quite scarred and long and filled with nu merous gallstones. The patient had normal intraoperative cholangiogram without any filling defects be ing present in the biliary tree. PROCEDURE: After informed consent was obtained, the patient taken to the operating room and placed in supine position. General endotracheal anesthesia administered. The patient's abdomen was then preppe d and draped in usual sterile fashion. Prior to making any abdominal incisions, the skin was injected with local anesthesia. A right upper quadrant incision was then made in the skin using a scalpel. A 5 mm Optiview trocar was then attempted to be inserted through the subcutaneous tissue and through t he fascia. However, I was only able to penetrate the posterior sheath and was not able to adequately insufflate the abdomen. Therefore, this port was then removed. An infraumbilical incision was made in the skin using a scalpel. A 5 mm Optiview trocar was then inserted through this incision, through th e fascia, and into the abdominal cavity under direct vision. The abdomen was then insufflated. Lookin g inside, no injuries were noted. Three 5-mm ports were then placed through right upper quadrant abdo genna incisions. The gallbladder was then grasped and lifted anteriorly and superiorly, exposing only the middle part of the gallbladder. There were numerous adhesions of the omentum to the gallbladder, which were taken down using electrocautery. The gallbladder was folded in on itself and intrahepatic , which made it difficult to fully expose the gallbladder. With care its lateral attachments of perit oneum were then divided. This allowed freeing up the gallbladder and seeing it's true length, which w as very long for a gallbladder. Once this had been performed a grasper was then placed on the body of the gallbladder and lifted anteriorly. The patient was a quite large patient and the peritoneum and underlying fat was thick getting around the neck of the gallbladder. By incising the peritoneum and c arefully performing the dissection, I was able to find the Shahnaz pouch. The cystic duct was then i dentified and dissected free from it's surrounding structures. Using a Ribeiro clamp a cholangiogram wa s then performed that showed normal biliary anatomy without any filling defects and flow of contrast into the duodenum. The patient's cystic duct was quite long. I attempted to dissect further down as f ar as I could along the cystic duct, but due to scarring I was unable to dissect down more than half the length of the cystic duct. Clips were then placed proximally and distally along the cystic duct w ith the cystic duct being divided. Cystic duct was enlarged and even though I felt the clips went acr oss the cystic duct I then put in an Endoloop around the cystic duct stump to further ensure that the re would be no leakage from the bile from the stump. Cystic artery was then identified, isolated, cli pped proximally and distally and then being divided. Gallbladder was then dissected off the gallbladd er bed using electrocautery, placed in an Endobag. The gallbladder was full of cholesterol gallstones . This would not go through the incision in the infraumbilical area. This needed be enlarged in which the anterior fascial layer was then incised. I was able then to remove the gallbladder with it's gal lstones. The right upper quadrant was thoroughly irrigated until the return fluid was clear. There wa s no bleeding noted in the gallbladder bed and exit ports were then removed and no bleeding was noted at the port sites, with the abdomen then being desufflated. The umbilical fascial defect was closed using interrupted #0 Vicryl suture. Skin incisions were closed using 4-0 Monocryl subcuticular stitch . Dermabond was then applied. The patient was then awakened, extubated and taken from the operating r oom in stable condition. ESTIMATED BLOOD LOSS: 50 mL. COMPLICATIONS: None. CONDITION OF THE PATIENT AT END OF PROCEDURE: Stable. SPECIMENS: Gallbladder and gallstones. DRAINS/PACKS: None. CLASSIFICATION OF WOUND: Clean contaminated. JOB #: [id number] EXT JOB #:[id number]
[2017-01-24] MEDS: HYDROcod/ACETAM 5/325 MG TABLET PO PRN ×2 (04:22→08:30)
[2017-01-24] MEDS: SODIUM CHLORIDE FLUSH 0.9% 10 ML SYRINGE IVP SCH (05:44)
[2017-01-24] MEDS: SODIUM CHLORIDE 0.9% 1,000 ML IV SCH (05:45)
[2017-01-24 08:16] VITALS: BP 129/67
--- NOTE | 2017-01-24 09:23 | Discharge Plan ---
Discharge Plan Disposition: 01 Home, Self Care Condition: Good Prescriptions: HYDROcod/ACETAM 5/325 [[place] 5/325] 1 - 2 tab PO Q4HR PRN #40 tablet PRN Reason: Pain Diet: Regular Activity Restrictions: no lifting over 15 lbs Shower Restrictions: No Driving Restrictions: Yes (for at least 2 days and not taking pain medication) Weight Bearing: Full Weight No Smoking: If you smoke, Please STOP! Call for help. Follow-up with: David Sigala MD [Provider Admit Priv/Credential] - 2 Weeks
== END 2017-01-24 09:46 | disposition home or self-care (01) | DRG 417 ==
LOC: EDUNIT# → ED 18:10 → OBS 22:34 → OBSVTOIN 01-22 15:21 → MS2 01-22 17:32
PROVIDERS: ADMIT Surgery; ATTEND Surgery
PROC: 0FT44ZZ Resection of Gallbladder, Percutaneous Endoscopic Approach (ICD-10-PCS; principal; 2017-01-23 12:30)
DX: K80.10 Calculus of gallbladder with chronic cholecystitis without obstruction (principal); K85.10 Biliary acute pancreatitis without necrosis or infection; Z68.41 Body mass index [BMI] 40.0-44.9, adult; E66.9 Obesity, unspecified; Z79.84 Long term (current) use of oral hypoglycemic drugs; Z87.01 Personal history of pneumonia (recurrent)
CPT/HCPCS: 47563; G0378; 36415; 76705; 80053; 81001; 81003; 81025; 83690; 85025; 87086; 88304; 96374; 96375; 96376; 99284; 99285

== ENCOUNTER 2017-01-21 19:40 | Outpatient (CLI) | payer OTHER | END 2017-01-21 19:41 | disposition critical access hospital (66) | LOC: EMS 19:40 | PROVIDERS: ATTEND Surgery | DX: R10.10 Upper abdominal pain, unspecified (principal) | CPT/HCPCS: A0425; A0429 ==